=== PATIENT | male | born 1965 | race African-American/Black ===

== ENCOUNTER 2020-05-09 20:02 | Inpatient (IN) | payer OTHER ==
[~2020-05-09] VITALS: Ht 177.8 cm; Wt 68.5 kg
--- NOTE | 2020-05-09 20:52 | Emergency Department Note ---
History of Present Illnes History of Present Illness Chief Complaint: Respiratory History of Present Illness This is a 54 year old male PRESENTS TO THE ER VIA EMS FROM [facility] FOR REPORTED OF POSSIBLE ASPIRATION OF VOMIT; PER [facility], PT HAS BEEN VOMITING SINCE YESTERDAY; EMS REPORTS [facility] REPORTED PT HAD BP OF 80/40'S, EMS REPORTS NORMAL BLOOD PRESSURE WHEN THEY CHECKED IT . Historian: Travel Registered Nurse Oncology/EMS Arrival Mode: [facility] EMS History limited by: condition of the patient (PT WITH H/PO CVA IS IN VEGATATIVE STATE, NON VERBAL) Location: NONE Quality: REPORTED LOW OXYGEN SATURATION Duration (how long): hour(s) (3) Timing of current episode: unable to specify Progression: unable to specify Chronicity: new Past Medical/Family History Physician Review I have reviewed the patient's past medical and family history. Any updates have been documented here. Past Medical History Recent Fever: No Clinical Suspicion of Infectio: No New/Unexplained Change in Ment: No Past Medical History: Hypertension, Seizure Disorder, GERD Other Medical History: ACUTE ON CHRONIC RESP FAILURE CEREBRAL INFARCTION GI HEMORRAGE MODERATE PROTEIN-CALORIE MALNUTRITION DYSPHAGIA EPILEPSY MRSA Other Surgery: TRACHEOSTOMY PEG TUBE Social History Unable to obtain PSH: Unable to obtain due to, other (PT WITH H/O CVA, IN VEGETATIVE STATE, NON VERBAL) Review of Systems ROS Narrative Unable to obtain ROS: Unable to obtain due to, other (PT WITH H/O CVA, IN VEGETATIVE STATE, NONVERBAL) Physical Exam Related Data Allergies: Coded Allergies: No Known Allergies (Unverified , 05/09/20) Triage Vital Signs Vital Signs Date Time Temp Pulse Resp B/P (MAP) Pulse Ox O2 Delivery O2 Flow Rate FiO2 05/09/20 20:02 20 22 109/90 99 Mechanical Ventilator Vital signs reviewed: Yes Physical Exam CONSTITUTIONAL Constitutional: Present other (PT CONTRACTED, THIN) HENT HENT: Present normocephalic, Present atraumatic, Present oropharynx clear/moist, Present nose normal HENT L/R: Present left TM normal, Present left ext ear normal, Present right ext ear normal EYES Eyes: Reports PERRL, Reports conjunctivae normal NECK Neck: Present other (TRACH PRESENT,NO SECRETIONS NOTED AT THIS TIME) PULMONARY Pulmonary: Present other (DECREASED BREATH SOUNDS BASE BILATERAL) CARDIOVASCULAR GASTROINTESTINAL Abdominal: Present soft, Present bowel sounds normal, Present other (PEG TUBE PRESENT); Absent distension GENITOURINARY Genitourinary: Present exam deferred SKIN Skin: Present warm, Present dry MUSCULOSKELETAL Musculoskeletal: Present other (PT CONTRACTED) NEUROLOGICAL Neurological: Present other (UNABLE TO EVALUATE, PT CONTRACTED, IN VEGETATIVE STATE, NON VERBAL) PSYCHOLOGICAL Psychological: Present other (UNABLE TO EVALUATE, PT IN VEGETATIVE STATE, NON VERBAL) Results Laboratory Lab results reviewed: Yes Imaging Imaging results reviewed: Yes Impressions Procedure: [id number] DX/CHEST SINGLE (PORTABLE) Exam Date: 05/09/20 Exam Time: 2039 REPORT STATUS: Signed EXAMINATION: CHEST SINGLE (PORTABLE) INDICATION: ^Y ^trach vent dependent, low oxygen saturation ^[id number] ^2039 ^Y COMPARISON: None FINDINGS: AP view TUBES and LINES: Tracheostomy tube in place with tip projecting just above the clavicles. LUNGS: Lungs are well inflated. Bilateral airspace opacities, most notable in left mid to lower lung field. Again seen right midlung nodular density, measuring approximately 1.2 cm. PLEURA: Bilateral small pleural effusions, left greater than right. HEART AND MEDIASTINUM: The cardiomediastinal silhouette is unremarkable. BONES AND SOFT TISSUES: No acute osseous lesion. Soft tissues are unremarkable. UPPER ABDOMEN: No free air under the diaphragm. IMPRESSION: Bilateral airspace opacities, representing edema and/or pneumonia, left greater right. Small bilateral pleural effusions, left greater than right. Approximately 1.2 cm right midlung nodular density. Signed by: Dr. 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: Interpreted by ED physician Date: May 09, 2020 Time: 20:17 Rhythm: sinus rhythm Rate: normal BPM: 86 QRS axis: normal ST segments normal: Yes T waves normal: Yes Clinical Impression: abnormal ECG Additional Comments ARTIFACT PRESENT THROUGHOUT EKG Critical Care Time Total Critical Care Time (min): 31 Critcal care necessary due to: sepsis Critcal care time spent by me: discussion w consultants, interpret cardiac output measures, evaluation patient response to tx, examination of patient, order/perform tx or interventions, order/review laboratory studies, order/review radiographic studies, pulse oximetry, re-evaluation of patient condition Assessment & Plan Medical Decision Making MDM PT FROM [facility] WITH TRACH AND IS VENT DEPENDENT WITH POSSIBLE ASPIRATION AFTER VOMITING TODAY CBC, CMP, EKG, CXR ORDERED TO EVAL FOR PNEUMONIA, LEUKOCYTOSIS, ELECTROLYTE ABNORMALITY 2114 pt found to be hypothermic tempt of 89.0, warming blanket placed, pt also with wbc of 12.4 and lower lobe opacities on cxr. lactic acid ordered rocephin 1 gram iv ordered zithromax 500 mg iv ordered ns 1 liter iv ordered 2144 PT WITH BLOOD SUGAR 51, 1 AMP D50 ORDERED, D5 1/2 NS ORDERED AT 100 CC PER HOUR IV INITIAL LACTIC ACID 2.[address] STONER AND HE REQUESTED DR DAMON FOR PULMONARY, PT WILL BE ADMITTED TO ICU DUE TO VENT DEPENDENCY, HYPOTHERMIA, AND HYPOGLYCEMIA DR DAMON REQUESTS A PICC LINE BE ORDERED BECAUSE PT HAS DIFFICULT VASCULAR ACCESS AND WILL NEED IV ANTIBIOTICS FOR SEVERAL DAYS REPEAT LACTIC ACID 3.4, PT STILL RECEIVING IV FLUIDS, LACTIC ACID ORDERED AGAIN AT 041, EXTERMINATOR HELPER TO FOLLOW UP Assessment & Plan Final Impression: (1) Severe sepsis (2) Hypothermia (3) Hypoglycemia (4) Aspiration pneumonia (5) Ventilator dependent Depart Disposition: ADMITTED Last Vital Signs Date Time Temp Pulse Resp B/P (MAP) Pulse Ox O2 Delivery O2 Flow Rate FiO2 05/09/20 20:02 20 22 109/90 99 Mechanical Ventilator KEVAN ALCANTAR MD May 09, 2020 20:52
[2020-05-09 20:55] LABS: BASOPHILS # (AUTO) 0.1 (0.0-0.1); BASOPHILS % 0.5 % (0.0-1.0); EOSINOPHILS % 0.3 % (0.0-6.0); HEMATOCRIT 26.3 % (38.2-49.6); LYMPHOCYTES % 8.4 % (18.0-39.1); MEAN CORPUSCULAR HEMOGLOBIN 23.4 pg (28-32); MEAN CORPUSCULAR HGB CONC 30.4 g/dL (31-35); MEAN CORPUSCULAR VOLUME 76.9 fL (81-99); MONOCYTES # (AUTO) 0.2 (0.2-0.8); MONOCYTES % 1.5 % (4.4-11.3); NEUTROPHILS % 88.3 % (38.7-80.0); PLATELET COUNT 80 x10e3/uL (140-360); RED BLOOD COUNT 3.42 x10e6/uL (4.3-5.7); RED CELL DISTRIBUTION WIDTH 27.2 % (11.7-14.4)
--- NOTE | 2020-05-09 21:03 | Diagnostic Imaging Report ---
EXAMINATION: CHEST SINGLE (PORTABLE) INDICATION: ^Y ^trach vent dependent, low oxygen saturation ^[id number] ^2039 ^Y COMPARISON: None FINDINGS: AP view TUBES and LINES: Tracheostomy tube in place with tip projecting just above the clavicles. LUNGS: Lungs are well inflated. Bilateral airspace opacities, most notable in left mid to lower lung field. Again seen right midlung nodular density, measuring approximately 1.2 cm. PLEURA: Bilateral small pleural effusions, left greater than right. HEART AND MEDIASTINUM: The cardiomediastinal silhouette is unremarkable. BONES AND SOFT TISSUES: No acute osseous lesion. Soft tissues are unremarkable. UPPER ABDOMEN: No free air under the diaphragm. IMPRESSION: Bilateral airspace opacities, representing edema and/or pneumonia, left greater right. Small bilateral pleural effusions, left greater than right. Approximately 1.2 cm right midlung nodular density. Signed by: Dr. Jeffery Lozoya MD on 05/09/2020 9:00 PM
[2020-05-09 21:17] LABS: ALANINE AMINOTRANSFERASE 22 IU/L (0-55); ALBUMIN 1.8 g/dL (3.5-5.0); ALBUMIN/GLOBULIN RATIO 0.4 (0.8-2.0); ALKALINE PHOSPHATASE 95 IU/L (40-150); ANION GAP 13.4 mmol/L (8-16); BLOOD UREA NITROGEN 37 mg/dL (7-26); BUN/CREATININE RATIO 36 (6-25); CALCIUM 9.1 mg/dL (8.4-10.2); CARBON DIOXIDE 25 mmol/L (22-29); CHLORIDE 103 mmol/L (98-107); CREATINE KINASE 42 IU/L (30-200); CREATININE, SERUM 1.02 mg/dL (0.72-1.25); EST GLOMERULAR FILTRATION RATE > 60 ML/MIN (60-); POTASSIUM 4.4 mmol/L (3.5-5.1); SODIUM 137 mmol/L (136-145)
[2020-05-09 21:24] LABS: BAND NEUTROPHILS % (MANUAL) 20 %; EOSINOPHILS % (MANUAL) 1 % (0-7); LYMPHOCYTES % (MANUAL) 10 % (19-48); MONOCYTES % (MANUAL) 1 % (3.4-9.0); NEUTROPHILS % (MANUAL) 68 % (40-74)
[2020-05-09 21:25] LABS: ANISOCYTOSIS SLIGHT; HYPOCHROMASIA SLIGHT; MICROCYTOSIS SLIGHT; PLATELET ESTIMATE SLIGHTLY DECREASED; PLATELET MORPHOLOGY COMMENT NORMAL; RBC MORPHOLOGY COMMENT NORMAL
[2020-05-09] MEDS ORDERED: AZITHROMYCIN 500MG/NS 250 ML 250 ML IV ONE (21:30)
[2020-05-09] MEDS ORDERED: SODIUM CHLORIDE 0.9% 1000ML 1,000 ML IV ONE ×2 (21:30→22:15)
[2020-05-09] MEDS ORDERED: CEFTRIAXONE SOD 1 GM/NS 50 ML 50 ML IV ONE (21:30)
[2020-05-09 21:42] LABS: GLUCOSE 51 mg/dL (74-118)
[2020-05-09] MEDS ORDERED: DEXTROSE 50% SYRINGE 50 ML IV STA (21:42)
[2020-05-09] MEDS ORDERED: DEXTROSE 5%/0.45% SOD CHL 1,000 ML IV ONE (21:45)
[2020-05-09] MEDS ORDERED: DEXTROSE 50% SYRINGE 50 ML IV ONE (21:50)
[2020-05-09 21:51] LABS: BILIRUBIN,URINE NEGATIVE (NEGATIVE); CLARITY,URINE HAZY (CLEAR); COLOR,URINE YELLOW (YELLOW); KETONES,URINE NEGATIVE (NEGATIVE); LEUKOCYTE ESTERASE ,URINE NEGATIVE (NEGATIVE); NITRITE,URINE NEGATIVE (NEGATIVE); PROTEIN,URINE DIPSTICK 1+ (NEGATIVE); URINE UROBILINOGEN 0.2 mg/dL (0.2 - 1)
[2020-05-09 21:53] LABS: AMORPHOUS SEDIMENT,URINE FEW (FEW); BACTERIA,URINE FEW /HPF; EPITHELIAL CELLS,URINE FEW /LPF; RBC,URINE 0-5 /HPF (0-5); WBC,URINE (MAN) 0-5 /HPF (0-5)
[2020-05-09] MEDS ORDERED: PIPER-TAZ 3.375 GM 50 ML IV ONE (22:00)
--- NOTE | 2020-05-09 22:14 | NUR ---
ER MD AND PRIMARY RN NOTIFIED AND AWARE OF CRITICAL LAB VALUE, LACTIC ACID 2.6.
[2020-05-09] MEDS: AZITHROMYCIN 500MG/SOD CHL 0.9% 250ML BAG IV SCH (23:30)
[2020-05-09] MEDS ORDERED: ACETAMINOPHEN 325 MG SUPP PR PRN (23:30)
[2020-05-10] VITALS (44 sets, daily range): BP systolic 63–112; BP diastolic 32–76
[2020-05-10] MEDS: AZITHROMYCIN 500MG/SOD CHL 0.9% 250ML BAG IV SCH (00:25)
--- NOTE | 2020-05-10 01:50 | Diagnostic Imaging Report ---
EXAMINATION: CHEST XRAY LINE PLACEMENT INDICATION: ^20200510 ^0125 ^PICC LINE COMPARISON: 05/09/2020 IMPRESSION Stable tracheostomy tube. Interval right PICC placement with tip projecting over inferior SVC. No pneumothorax. Redemonstration of bilateral airspace opacities and small effusions. Signed by: Dr. Jeffery Lozoya MD on 05/10/2020 1:47 AM
[2020-05-10] MEDS ORDERED: NOREPINEPHRINE 8 MG/D5W 250 ML 250 ML ONE ×2 (02:40→10:28)
[2020-05-10] MEDS ORDERED: NOREPINEPHRINE INJ 4MG/4ML 8 MG in DEXTROSE 5% 250ML 250 ML IV PRN (02:45)
[2020-05-10 05:31] LABS: BASOPHILS # (AUTO) 0.1 (0.0-0.1); BASOPHILS % 0.7 % (0.0-1.0); EOSINOPHILS % 0.2 % (0.0-6.0); HEMATOCRIT 24.3 % (38.2-49.6); HEMOGLOBIN 7.4 g/dL (14.0-18.0); LYMPHOCYTES # (AUTO) 0.7 (1.0-3.2); LYMPHOCYTES % 4.9 % (18.0-39.1); MEAN CORPUSCULAR HEMOGLOBIN 23.2 pg (28-32); MEAN CORPUSCULAR HGB CONC 30.5 g/dL (31-35); MEAN CORPUSCULAR VOLUME 76.2 fL (81-99); MONOCYTES # (AUTO) 0.2 (0.2-0.8); MONOCYTES % 1.6 % (4.4-11.3); NEUTROPHILS # (AUTO) 12.3 (2.1-6.9); PLATELET COUNT 73 x10e3/uL (140-360); RED BLOOD COUNT 3.19 x10e6/uL (4.3-5.7); RED CELL DISTRIBUTION WIDTH 27.5 % (11.7-14.4)
[2020-05-10 05:51] LABS: ALANINE AMINOTRANSFERASE 19 IU/L (0-55); ALBUMIN 1.7 g/dL (3.5-5.0); ALBUMIN/GLOBULIN RATIO 0.4 (0.8-2.0); ALKALINE PHOSPHATASE 89 IU/L (40-150); ANION GAP 10.1 mmol/L (8-16); BLOOD UREA NITROGEN 37 mg/dL (7-26); BUN/CREATININE RATIO 35 (6-25); CALCIUM 8.2 mg/dL (8.4-10.2); CARBON DIOXIDE 22 mmol/L (22-29); CHLORIDE 106 mmol/L (98-107); CREATININE, SERUM 1.05 mg/dL (0.72-1.25); EST GLOMERULAR FILTRATION RATE > 60 ML/MIN (60-); POTASSIUM 4.1 mmol/L (3.5-5.1); SODIUM 134 mmol/L (136-145)
[2020-05-10 05:52] LABS: CREATINE KINASE MB 3.7 ng/mL (0-5.0)
[2020-05-10 05:55] LABS: GLUCOSE 54 mg/dL (74-118)
[2020-05-10] MEDS ORDERED: DEXTROSE 50% SYRINGE 50 ML IV PRN (06:00)
[2020-05-10] MEDS: PIPER-TAZ 3.375 GM 50 ML IV SCH ×3 (06:02→23:00)
[2020-05-10 08:26] LABS: CREATINE KINASE MB 3.2 ng/mL (0-5.0)
[2020-05-10] MEDS ORDERED: ACETAMINOPHEN325 M1 PO (08:55)
[2020-05-10] MEDS ORDERED: AMIODARONE HCL200 MG PEG (08:57)
[2020-05-10] MEDS ORDERED: CLONIDINE HCL0.1 MG PO (09:00)
[2020-05-10] MEDS ORDERED: FERROUS SU220 MG/52 PEG (09:02)
[2020-05-10] MEDS ORDERED: KEPPRA500 MG PO (09:05)
[2020-05-10] MEDS ORDERED: METOPROLOL TAR100 MG PO (09:06)
[2020-05-10] MEDS ORDERED: PEPCID20 MG PO (09:07)
[2020-05-10] MEDS ORDERED: THIAMINE H100 MG/1 M IV (09:09)
[2020-05-10] MEDS ORDERED: VALPROIC A250 MG/5 M PO (09:10)
[2020-05-10] MEDS ORDERED: XARELTO10 MG PEG (09:12)
[2020-05-10] MEDS ORDERED: ZOFRAN8 MG PEG (09:13)
[2020-05-10 10:23] LABS: ANISOCYTOSIS MARKED; BAND NEUTROPHILS % (MANUAL) 6 %; EOSINOPHILS % (MANUAL) 1 % (0-7); LYMPHOCYTES % (MANUAL) 7 % (19-48); MONOCYTES % (MANUAL) 1 % (3.4-9.0); NEUTROPHILS % (MANUAL) 85 % (40-74); RBC MORPHOLOGY COMMENT ABNORMAL; TARGET CELLS MODERATE
[2020-05-10 10:24] LABS: SCHISTOCYTES RARE
[2020-05-10 10:25] LABS: MICROCYTOSIS SLIGHT
[2020-05-10 10:28] LABS: PLATELET ESTIMATE MODERATELY DECREASED; PLATELET MORPHOLOGY COMMENT NORMAL
[2020-05-10] MEDS ORDERED: SODIUM CHLORIDE 0.9% 250ML 250 ML IV ONE (11:30)
[2020-05-10] MEDS: VASOPRESSIN 60 UNIT in DEXTROSE 5% 50ML 57 ML IV SCH (11:30)
[2020-05-10] MEDS ORDERED: SODIUM CHLORIDE 0.9% 1000ML 1,000 ML IV SCH (11:30)
[2020-05-10] MEDS: NOREPINEPHRINE 8 MG/D5W 250 ML 250 ML IV PRN (12:00)
--- NOTE | 2020-05-10 15:18 | Consultation ---
DATE OF CONSULTATION: Pulmonary Critical Care Consultation REASON FOR CONSULT: ICU management. HISTORY OF PRESENT ILLNESS: Mr. Chavez is a 54-year-old male, well known to me from previous admission and [facility]. The patient is in persistent vegetative state with chronic respiratory failure. He is vent-dependent, has multiple decubitus ulcer, anemia, has been at [facility] in the past and then remained in ICU. Currently, came in with worsening shortness of breath and the patient's chest x-ray is showing evidence of bilateral airspace opacities and looks like that he has developed pneumonia. The patient is tachypneic on mechanical ventilator. He is unable to give me any history because of his mental status. REVIEW OF SYSTEMS: Unable to elicit because of his mental status. PAST MEDICAL HISTORY: Persistent vegetative state, hypertension, bipolar disorder, tracheostomy, and gastrostomy tube. FAMILY AND SOCIAL HISTORY: He is a [place] resident. PHYSICAL EXAMINATION: VITAL SIGNS: Temperature 97, pulse of 100, blood pressure 93/73, and afebrile. HEENT: Tracheostomy. CHEST: Clear to auscultation bilaterally. No wheezing. ABDOMEN: Soft. PEG tube contracted. LABORATORY DATA: Reviewed. Hemoglobin is down to 7.4, white count of 13,000, and platelets 73. Chemistry; sodium 134, potassium 4.1, BUN 37, and creatinine 1.05. Lactic acid is 2.8, was 2.6 and now 2.0 this morning. Chest x-ray reviewed. ASSESSMENT/PLAN: Mr. Chavez is a 54-year-old male, who is bedbound, vent-dependent, has tracheostomy and PEG tube, came in with worsening shortness of breath, leukocytosis, chest x-ray suggestive of pneumonia. Current problem: Healthcare-associated pneumonia, septic shock due to pneumonia, bedbound status, tracheostomy status, PEG tube status, contractures. The patient has encephalopathy as well. PLAN: Continue the patient on IV Zosyn and azithromycin. Add vasopressin to Levophed. We will start the patient on sedation with fentanyl. Resume the home medications. Hold on Xarelto. Recommend GI consult for anemia. Overall prognosis is poor. Critical care time spent, 50 minutes. MD ELVER Charles/MODL /[id number]
[2020-05-10] MEDS: FENTANYL 2000MCG/NS 250 250 ML IV PRN (15:54)
--- NOTE | 2020-05-10 15:57 | NUR ---
WOUND CARE CONSULT 54 YO MALE HX OF ASPIRATION PNEU FRANCHESCA 8 0N STRICT PUP STATUS AND INTERVENTIONS LABS: WBC- 13.47 HGB- 7.4 GLUCOSE-54 SKIN ASSESSMENT COMPLETE PATIENT PRESENTS WITH MULTIPLE PRESSURE INJURIES RELATED TO CONTRACTURES AND DEBILITATION AND NUTRITIONAL STATUS WOUND ASSESSMENTS AND MEASUREMENTS LISTED ON WOUND ASSESSMENT FOR ATTACHED CYNDI PEG SITE ALSO HAS FULL THICKNESS WOUND DOCUMENTED WELL RECOMMENDATIONS: NURSING TO CONTINUE TO MONITOR PATIENT AND KEEP SKIN CLEAN AND FREE FROM LOOSE STOOL OR IRRITATING MOISTURE AND CONTINUE TO FOLLOW STRICT PUP INTERVENTIONS MAINTAIN SOFT OFFLOADING BOOTS TO BILATERAL LOWER EXTREMITIES WITH PILLOW SUSPENSION AND ALTERNATING PRESSURE SURFACE COORDINATED WITH FREQUENT Q 2 HR TURNS NURSING TO CONTINUE TO ASSIST PATIENT WITH NUTRITIONAL NEEDS TO SUPPORT HEALING NURSING TO CLEAN MULTIPLE PRESSURE ULCERATIONS TO RIGHT FOOT ,HIP ,SACRUM ,BUTTOCKS,RT ELBOW ,RT SHOULDER, WITH NORMAL SALINE DAILY AND APPLY MAXSORB AG TO WOUND BASE AND COVER WITH ALLEVYN FOAM DRESSING NURSING TO CLEAN ULCERATION CYNDI PEG TUBE WITH NORMAL SALINE DAILY AND APPLY MAXSORB AG TO WOUND BASE AND COVER WITH ALLEVYN FOAM DRESSING CUT TO FIT AROUND PEG TUBE Addendum: 05/10/20 at 1610 by Eliseo Samson RN Amended: Links added.
[2020-05-10] MEDS ORDERED: SODIUM CHLORIDE 0.9% 250ML 250 ML ONE ×2 (17:36→20:52)
[2020-05-10] MEDS: LEVETIRACETAM 500 MG TAB PO SCH (18:46)
[2020-05-10] MEDS: VALPROATE 250MG/5ML ORAL LIQ 5ml PEG SCH (21:10)
[2020-05-10] MEDS ORDERED: VALPROATE SODIUM PO SCH (22:00)
[2020-05-11] VITALS (58 sets, daily range): BP systolic 75–115; BP diastolic 44–99
[2020-05-11] MEDS: NOREPINEPHRINE 8 MG/D5W 250 ML 250 ML IV PRN ×2 (02:02→17:46)
[2020-05-11 06:11] LABS: BASOPHILS # (AUTO) 0.1 (0.0-0.1); BASOPHILS % 0.7 % (0.0-1.0); EOSINOPHILS # (AUTO) 0.1 (0.0-0.4); EOSINOPHILS % 0.6 % (0.0-6.0); HEMATOCRIT 26.1 % (38.2-49.6); HEMOGLOBIN 8.1 g/dL (14.0-18.0); LYMPHOCYTES # (AUTO) 1.2 (1.0-3.2); LYMPHOCYTES % 9.5 % (18.0-39.1); MEAN CORPUSCULAR HEMOGLOBIN 24.3 pg (28-32); MEAN CORPUSCULAR VOLUME 78.1 fL (81-99); MONOCYTES # (AUTO) 0.3 (0.2-0.8); MONOCYTES % 2.7 % (4.4-11.3); NEUTROPHILS # (AUTO) 10.5 (2.1-6.9); RED BLOOD COUNT 3.34 x10e6/uL (4.3-5.7); RED CELL DISTRIBUTION WIDTH 26.9 % (11.7-14.4)
[2020-05-11] MEDS: PIPER-TAZ 3.375 GM 50 ML IV SCH (06:13)
[2020-05-11] MEDS: VALPROATE 250MG/5ML ORAL LIQ 5ml PEG SCH ×3 (06:14→22:11)
[2020-05-11 06:40] LABS: ANION GAP 10.4 mmol/L (8-16); BLOOD UREA NITROGEN 34 mg/dL (7-26); BUN/CREATININE RATIO 31 (6-25); CALCIUM 8.5 mg/dL (8.4-10.2); CARBON DIOXIDE 23 mmol/L (22-29); CHLORIDE 107 mmol/L (98-107); EST GLOMERULAR FILTRATION RATE > 60 ML/MIN (60-); POTASSIUM 4.4 mmol/L (3.5-5.1); SODIUM 136 mmol/L (136-145)
[2020-05-11 07:06] LABS: GLUCOSE 50 mg/dL (74-118)
[2020-05-11] MEDS: FENTANYL 2000MCG/NS 250 250 ML IV PRN (07:14)
[2020-05-11 08:08] LABS: BAND NEUTROPHILS % (MANUAL) 4 %; EOSINOPHILS % (MANUAL) 1 % (0-7); LYMPHOCYTES % (MANUAL) 11 % (19-48); MONOCYTES % (MANUAL) 1 % (3.4-9.0); NEUTROPHILS % (MANUAL) 83 % (40-74)
[2020-05-11 08:09] LABS: TARGET CELLS MODERATE
[2020-05-11 08:10] LABS: PLATELET ESTIMATE MARKEDLY DECREASED; PLATELET MORPHOLOGY COMMENT NORMAL; RBC MORPHOLOGY COMMENT ABNORMAL
[2020-05-11 08:11] LABS: SCHISTOCYTES RARE
[2020-05-11 08:12] LABS: ANISOCYTOSIS MODERATE; HYPOCHROMASIA SLIGHT
[2020-05-11 08:16] LABS: LARGE PLATELETS FEW; PLATELET COUNT 44 x10e3/uL (140-360)
[2020-05-11] MEDS ORDERED: SODIUM CHLORIDE 0.9% 500ML 500 ML IV ONE ×2 (08:30→08:45)
[2020-05-11] MEDS: THIAMINE HCL INJ 100 MG/ML 2ML VIAL IV SCH (08:45)
[2020-05-11] MEDS: LEVETIRACETAM 500 MG TAB PO SCH ×2 (08:45→15:37)
[2020-05-11] MEDS: FERROUS SULFATE 300 MG/5 ML LIQD PEG SCH (08:45)
[2020-05-11] MEDS ORDERED: NON-FORMULARY MEDICATION (Ferrous Sulfate 7.5 ML) PEG SCH (09:00)
[2020-05-11] MEDS: CEFEPIME 1GM/NS 0.9% 50 ML 50 ML IV SCH ×2 (09:32→20:38)
[2020-05-11] MEDS: VASOPRESSIN 60 UNIT in DEXTROSE 5% 50ML 57 ML IV SCH (11:30)
--- NOTE | 2020-05-11 15:35 | Consultation ---
DATE OF CONSULTATION: Wound Consultation Thank you, Dr. Sanches, for asking us to see this patient. 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 The patient has ulcers from pressure at multiple sites. Wound consult was called. The patient cannot communicate, on mechanical ventilation, contracted. PAST MEDICAL HISTORY: CVA, persistent vegetative status, vent independent, bipolar, hypertension, multiple wounds, and contracted status. PAST SURGICAL HISTORY: Tracheostomy, PEG tube. PERSONAL HISTORY: Unknown. PAST MEDICAL HISTORY: Includes hypertension, pulmonary embolism, and cerebral infarction. PHYSICAL EXAMINATION: GENERAL: Blood pressure 87/52, pulse of 106, and temperature 96.9. Height 5 feet 10 inches, weight 160 pounds. HEENT: Normal. NECK: No JVD. Tracheostomy in place. LUNGS: Diminished air entry to the bases. ABDOMEN: Soft. PEG tube in place. EXTREMITIES: Lower extremities contracted. SKIN: Left lateral malleolus, the patient has a wound stage IV, 80% pink, 30% slough, bone palpable, measures 2.5 x 2.5 x 0.3 cm. Right lateral foot necrotic, unstageable pressure ulcer. Left lateral malleolus, the patient has stage IV pressure ulcer, 50% slough, pink, bone palpable, not exposed, measures 2.2 x 0.3 cm. Left lateral metatarsal has dark necrotic area with DTI. Both groins, the patient has some maceration. Left groin has stage IV ulcer, cause of pressure unspecified, probably catheter, probably from contractures. Right inner thigh multiple excoriations causing stage III ulcers. Penile edema noted. G-tube site is loose with drainage around the G-tube with maceration noted. Sacral area, stage IV pressure ulcer measures approximately 6 x 0.5 cm, 30% necrotic, 20% facial slough, undermining for 0.5 cm by 12 o'clock position, bone palpable, not exposed. The right upper back on the acromion and scapular area, there are three wounds. The upper wound has necrotic slough and exposed subcutaneous tissue and fascia. Two wounds on the lower acromion on the scapula, both are stage IV with 50% necrotic and 50% slough. Left hip, the patient has a wound measuring 4.5 x 5 cm, 80% pink within small tunnel the patient has a wound measuring 2.5 x 2 cm x 0.3 cm, stage IV. ASSESSMENT: Multiple pressure ulcers, contractures, non-healable wounds, currently does not need debridement. PLAN: We will continue the wound care. We will clean wound with normal saline and packed with Dakin's moistened 4 x 4, Maxorb. Thank you for consultation, we will follow with you. Nuris Diana MD TG/MODL /[id number]
[2020-05-11] MEDS ORDERED: ALBUMIN 25% 25GM 100ML 0.25 GM/ML BTL IV NR (16:45)
[2020-05-11] MEDS: AZITHROMYCIN 500MG/SOD CHL 0.9% 250ML BAG IV SCH (23:01)
[2020-05-12] VITALS (45 sets, daily range): BP systolic 86–107; BP diastolic 50–67
[2020-05-12] MEDS: NOREPINEPHRINE 8 MG/D5W 250 ML 250 ML IV PRN ×2 (00:53→09:59)
[2020-05-12] MEDS: FENTANYL 2000MCG/NS 250 250 ML IV PRN ×2 (03:40→20:04)
[2020-05-12 05:07] LABS: BASOPHILS % 0.1 % (0.0-1.0); EOSINOPHILS # (AUTO) 0.1 (0.0-0.4); HEMATOCRIT 23.1 % (38.2-49.6); HEMOGLOBIN 7.3 g/dL (14.0-18.0); LYMPHOCYTES # (AUTO) 1.1 (1.0-3.2); LYMPHOCYTES % 12.3 % (18.0-39.1); MEAN CORPUSCULAR HEMOGLOBIN 25.5 pg (28-32); MEAN CORPUSCULAR HGB CONC 31.6 g/dL (31-35); MEAN CORPUSCULAR VOLUME 80.8 fL (81-99); MONOCYTES # (AUTO) 0.3 (0.2-0.8); MONOCYTES % 3.1 % (4.4-11.3); NEUTROPHILS # (AUTO) 7.5 (2.1-6.9); NEUTROPHILS % 82.2 % (38.7-80.0); RED BLOOD COUNT 2.86 x10e6/uL (4.3-5.7); RED CELL DISTRIBUTION WIDTH 27.2 % (11.7-14.4)
[2020-05-12 05:12] LABS: PLATELET COUNT 26 x10e3/uL (140-360)
[2020-05-12 05:22] LABS: ANION GAP 11.2 mmol/L (8-16); BLOOD UREA NITROGEN 26 mg/dL (7-26); BUN/CREATININE RATIO 23 (6-25); CALCIUM 9.2 mg/dL (8.4-10.2); CARBON DIOXIDE 24 mmol/L (22-29); CHLORIDE 111 mmol/L (98-107); CREATININE, SERUM 1.12 mg/dL (0.72-1.25); EST GLOMERULAR FILTRATION RATE > 60 ML/MIN (60-); GLUCOSE 61 mg/dL (74-118); POTASSIUM 4.2 mmol/L (3.5-5.1); SODIUM 142 mmol/L (136-145)
[2020-05-12] MEDS: VALPROATE 250MG/5ML ORAL LIQ 5ml PEG SCH (05:54)
--- NOTE | 2020-05-12 06:20 | NUR ---
Left message with answering service for Dr. Malik regarding critical lab value. Awaiting return call.
[2020-05-12 06:29] LABS: IRON 60 ug/dL (65-175); TRANSFERRIN < 70 mg/dL (174-364)
[2020-05-12 07:12] LABS: FERRITIN 3370.37 ng/mL (21.81-274.66)
--- NOTE | 2020-05-12 07:54 | Diagnostic Imaging Report ---
EXAMINATION: CHEST SINGLE (PORTABLE) INDICATION: Pneumonia COMPARISON: Chest x-ray 05/10/2020 FINDINGS: TUBES and LINES: Tracheostomy tube tip projects within the upper intrathoracic trachea. Right upper extremity PICC tip terminates in the superior cavoatrial junction.. LUNGS: Hyperexpanded lungs. Extensive airspace haziness. PLEURA: No pleural effusion or pneumothorax. HEART AND MEDIASTINUM: The cardiomediastinal silhouette is mildly enlarged.. Coronary stents. BONES AND SOFT TISSUES: No acute osseous lesion. Soft tissues are unremarkable. UPPER ABDOMEN: No free air under the diaphragm. IMPRESSION: Stable support apparatus. Extensive airspace disease. Signed by: Reg Arreola DO on 05/12/2020 7:50 AM
[2020-05-12] MEDS: SODIUM HYPOCHLORITE 0.25% 480 ML SOLN IR SCH (08:01)
[2020-05-12] MEDS: LEVETIRACETAM 500 MG TAB PO SCH ×2 (08:01→17:22)
[2020-05-12] MEDS: FERROUS SULFATE 300 MG/5 ML LIQD PEG SCH (08:01)
[2020-05-12] MEDS: THIAMINE HCL INJ 100 MG/ML 2ML VIAL IV SCH (08:01)
[2020-05-12] MEDS: CEFEPIME 1GM/NS 0.9% 50 ML 50 ML IV SCH (08:01)
[2020-05-12 10:50] LABS: ANISOCYTOSIS MODERATE; BAND NEUTROPHILS % (MANUAL) 1 %; EOSINOPHILS % (MANUAL) 1 % (0-7); LYMPHOCYTES % (MANUAL) 16 % (19-48); MONOCYTES % (MANUAL) 1 % (3.4-9.0); NEUTROPHILS % (MANUAL) 81 % (40-74); PLATELET ESTIMATE MARKEDLY DECREASED; RBC MORPHOLOGY COMMENT ABNORMAL; TARGET CELLS MODERATE
[2020-05-12 10:51] LABS: HYPOCHROMASIA SLIGHT
[2020-05-12] MEDS ORDERED: SODIUM CHLORIDE 0.9% 250ML 250 ML ONE (11:16)
[2020-05-12 11:19] LABS: ABG HCO3 25 mmol/L (22-26); ABG PCO2 55 mmHg (35-45); ABG PH 7.26 (7.35-7.45); ABG PO2 72 mmHg (80-105); ABG TCO2 27
[2020-05-12] MEDS: VASOPRESSIN 60 UNIT in DEXTROSE 5% 50ML 57 ML IV SCH (11:30)
--- NOTE | 2020-05-12 12:48 | NUR ---
Nutrition Intervention Note RD Recommendation(s) for Physician: - If light of pressor requirement and wounds, recommend TF change to Vital AF with goal rate of 70 ml/hr (to provide 2016 kcal and 126 gm protein) to better meet needs. - Water flushes and fluid management per MD. - Please give Ismael 1 packet BID per PEG to promote wound healing. - Recommend Vitamin C 500 mg BID and Zinc Sulfate 220 mg/day to promote wound healing. Pt meets criteria for moderate protein calorie malnutrition Plan of Care: RD following, monitoring for tolerance and adequacy. TF, MVI, and supplement rec's. Nutrition reason for involvement: new TF RD Assessment 05/12: 54 YOM admitted for aspiration pneumonia, seen today per TF on admit. Pt transferred from ER to ICU now. Pt chronic trach and PEG, currently on vent and receiving TF at 40 ml/hr. Pt on high Levophed currently. No prior admits per chart, unable to obtain wt or TF hx currently. Pt with multiple wounds on admit per MD notes. Awaiting wound care consult. TF and supplement rec's provided and placed in chart. Chart reviewed. Will continue to monitor. Principal Problems/Diagnoses: aspiration pneumonia, hypoglycemia PMH: organic brain syndrome, CVA, persistent vegetative state, bipolar, HTN, multiple wounds, contractures GI: LBM 05/12- liquid, +PEG Skin: Per MD note- L ankle stage IV, R foot necrotic, unstagable, L groin stage IV, R inner thigh stage III, PEG site loose + drainage, sacral area stage IV, L hip stage IV, wounds to upper back Labs: 05/12: Na 142, K 4.2, BUN 26, Cr 1.12, Gluc 61 Meds: feosol, thiamine, keppra, abx IVF/Drips: levophed at 15 mcg/min, fentanyl drip Ht: 70 in Wt: 153.19 lb BMI: 22 kg/m2 IBW: 166 lb Malnutrition Evaluation (05/12/20) The patient meets criteria for MODERATE protein-calorie malnutrition. Energy intake: CHRISTIANNE, pt non-verbal and TF dependent Weight loss: CHRISTIANNE, no prior admit wt available Fat loss: moderate, very little skinfold thickness Muscle loss: moderate, temporal wasting, clavicle some protrusion Supporting Evidence: Fluid accumulation: none observed Functional Status: poor functional status at baseline Nutrition Prescription (Diet Order): Osmolite 1.2, advance to goal rate of 60 ml/hr. Currently infusing at 40 ml/hr (1152 kcal and 53 gm protein) Estimated Nutritional Needs: 2297-4979 calories/day (28-32 kcal/kg CBW) 84-139 g protein/day (1.2-2 g pro/kg CBW) Diet Adequacy: Not meeting calorie needs, Not meeting protein needs Diet Tolerance: tolerating TF Diet Education Needs Assessment: Diet education not indicated, patient TF dependent. Nutrition Care Level: high- multiple wounds Nutrition Diagnosis: Increased energy and protein needs related to skin integrity as evidenced by multiple wounds present on admit. Goal: Patient will meet 75-100% of estimated needs by follow up Progress: N/A Interventions: - Composition, Rate, Route, IVF, Prescription medications, Recommended Modifications, Multivitamin/mineral supplement therapy, Collaboration with other providers, Ismael Monitoring/Evaluation: - Total energy intake, Total protein intake, Formula/Solution, Prescription medication Signed: Kate Diez RD, LD, CNSC
[2020-05-12] MEDS: MEROPENEM 500MG/ NS 50ML 50 ML IV SCH ×2 (15:43→22:38)
--- NOTE | 2020-05-12 16:23 | NUR ---
INFECTIOUS DISEASE CONSULT NOTE DR. SUHAS WOODY CC: Bacteremia and PNA, CDIFF HPI: 54-year-old male, well known to me from previous admission and [facility]. The patient is in persistent vegetative state with chronic respiratory failure. He is vent-dependent, has multiple decubitus ulcer, anemia, has been at [facility] in the past and then remained in ICU. Currently, came in with worsening shortness of breath and the patient's chest x-ray is showing evidence of bilateral airspace opacities with pneumonia. The patient is tachypneic on mechanical ventilator. History obtained from the chart PMH: vegetative state, HTN, multiple infections PAST SURGICAL:Trach, PEG SOCIAL: unknown FAMILY: unknown, nursing hoome ROS: unable to obtain due to vegetative state ALL 14 POINT ROS NEG UNLESS OTHERWISE NOTED LABS: reviewed RADIOLOGY: reviewed PHYSICAL EXAM GENERAL: vent dependent, critically ill HEENT: normocephalic, atraumatic CV: s1, s2, no s3, s4 CHEST: diminished, rhonchi ABD: PEG, soft, non-tender EXT: contractures, multiple wounds NEURO: unable to assess IMPRESSION: Bacteremia Chronic wounds Chronic hypoxic respiratory failure with vent dependence and trach HAP CDIFF PLAN: Gram neg rods in the blood Will continue Merrem will continue oral vanc overall prognosis is poor Marianela Marin MSN, [employer], [facility]- Suhas Woody M.D.
[2020-05-12] MEDS ORDERED: SODIUM CHLORIDE 0.9% 250ML 250 ML IV ONE (17:00)
[2020-05-12] MEDS: VANCOMYCIN 250MG/5ML ORAL SOLN PEG SCH (17:22)
[2020-05-13] VITALS (15 sets, daily range): BP systolic 97–141; BP diastolic 51–69
[2020-05-13] MEDS: VANCOMYCIN 250MG/5ML ORAL SOLN PEG SCH ×4 (00:22→17:36)
[2020-05-13] MEDS: MEROPENEM 500MG/ NS 50ML 50 ML IV SCH (05:32)
[2020-05-13 06:12] LABS: BASOPHILS % 0.1 % (0.0-1.0); EOSINOPHILS % 0.4 % (0.0-6.0); HEMATOCRIT 27.9 % (38.2-49.6); HEMOGLOBIN 8.8 g/dL (14.0-18.0); LYMPHOCYTES # (AUTO) 0.7 (1.0-3.2); LYMPHOCYTES % 7.4 % (18.0-39.1); MEAN CORPUSCULAR HEMOGLOBIN 25.9 pg (28-32); MEAN CORPUSCULAR HGB CONC 31.5 g/dL (31-35); MEAN CORPUSCULAR VOLUME 82.1 fL (81-99); MONOCYTES # (AUTO) 0.4 (0.2-0.8); MONOCYTES % 4.3 % (4.4-11.3); NEUTROPHILS # (AUTO) 8.3 (2.1-6.9); NEUTROPHILS % 86.9 % (38.7-80.0); PLATELET COUNT 58 x10e3/uL (140-360)
[2020-05-13 06:24] LABS: RED CELL DISTRIBUTION WIDTH 26.5 % (11.7-14.4)
[2020-05-13 06:25] LABS: INR 1.39; PROTHROMBIN TIME 17.8 seconds (11.9-14.5)
[2020-05-13 06:37] LABS: ALANINE AMINOTRANSFERASE 11 IU/L (0-55); ALBUMIN 1.9 g/dL (3.5-5.0); ALBUMIN/GLOBULIN RATIO 0.5 (0.8-2.0); ALKALINE PHOSPHATASE 76 IU/L (40-150); ANION GAP 10.1 mmol/L (8-16); BLOOD UREA NITROGEN 22 mg/dL (7-26); BUN/CREATININE RATIO 21 (6-25); CALCIUM 9.8 mg/dL (8.4-10.2); CARBON DIOXIDE 25 mmol/L (22-29); CHLORIDE 111 mmol/L (98-107); CREATININE, SERUM 1.03 mg/dL (0.72-1.25); EST GLOMERULAR FILTRATION RATE > 60 ML/MIN (60-); GLUCOSE 96 mg/dL (74-118); POTASSIUM 4.1 mmol/L (3.5-5.1); SODIUM 142 mmol/L (136-145)
--- NOTE | 2020-05-13 08:26 | Diagnostic Imaging Report ---
TECHNIQUE: Frontal view of the chest. INDICATION: ^pneumonia ^20200513 ^0625 COMPARISON: Prior day. DISCUSSION: Limited evaluation due to portable technique. Lines and hardware: Stable tracheostomy tube and right PICC. Heart and mediastinum: Stable. Lungs and pleura: Stable hyperexpanded lungs with multifocal bilateral airspace opacities. Negative for large pneumothorax. Question trace effusions. Soft tissues and bones: No acute abnormality. IMPRESSION: Stable exam demonstrate hyperexpanded lungs in multifocal bilateral airspace opacities. Stable support structures. Signed by: John Calabrese MD on 05/13/2020 8:23 AM
[2020-05-13] MEDS ORDERED: AZTREONAM 1 GM/NS 50 ML 50 ML IV SCH (08:45)
[2020-05-13] MEDS: LEVETIRACETAM 500 MG TAB PO SCH ×2 (09:00→17:35)
[2020-05-13] MEDS: SODIUM HYPOCHLORITE 0.25% 480 ML SOLN IR SCH (09:00)
[2020-05-13] MEDS: FERROUS SULFATE 300 MG/5 ML LIQD PEG SCH (09:00)
[2020-05-13] MEDS: THIAMINE HCL INJ 100 MG/ML 2ML VIAL IV SCH (09:00)
[2020-05-13 11:13] LABS: EOSINOPHILS % (MANUAL) 1 % (0-7); LYMPHOCYTES % (MANUAL) 8 % (19-48); MONOCYTES % (MANUAL) 2 % (3.4-9.0); NEUTROPHILS % (MANUAL) 89 % (40-74)
[2020-05-13 11:14] LABS: ANISOCYTOSIS MODERATE; HYPOCHROMASIA SLIGHT; RBC MORPHOLOGY COMMENT ABNORMAL; TARGET CELLS MODERATE
[2020-05-13 11:15] LABS: HELMET CELLS SLIGHT; TEAR DROP CELLS FEW
[2020-05-13 11:16] LABS: PLATELET ESTIMATE MODERATELY DECREASED; PLATELET MORPHOLOGY COMMENT NORMAL
[2020-05-13] MEDS: VASOPRESSIN 60 UNIT in DEXTROSE 5% 50ML 57 ML IV SCH (11:30)
[2020-05-13] MEDS ORDERED: CEFEPIME 1GM/NS 0.9% 50 ML 50 ML IV SCH (12:00)
--- NOTE | 2020-05-13 13:17 | Consultation ---
DATE OF CONSULTATION: HISTORY OF PRESENT ILLNESS: Mr. Chavez is a 54-year-old male, comes in from [facility], multiple admissions, aspiration pneumonia, multiple decubitus ulcer. He is vent-dependent. He was in [facility] before. The patient has persistent vegetative state, hypertension, bipolar disorder, status post tracheostomy, status post PEG tube placement, comes in with fever, chills, and shortness of breath. The patient, who has history of old CVA, respiratory failure, failure to thrive, noncommunicative, comes in with shortness of breath and worsening condition. I was asked to see him. The patient, who has multiple pressure ulcers. He had left lateral malleolus stage IV, 2.5 x 2.5 x 0.3 cm, has right foot ulcer, which is also unstageable. He has multiple ulcers, large groin, stage IV ulcer. Please refer to the Wound Care notes. LABORATORY DATA: The patient's cultures reviewed. He had Pseudomonas aeruginosa. Blood cultures are pending. His white count 9.5 and hemoglobin 8.8. His sodium 142, potassium 4.4, and creatinine 1.03. MEDICATION LIST: He is on vancomycin p.o. IMAGING DATA: His chest x-ray showed multifocal infiltrate. PHYSICAL EXAMINATION: GENERAL: He is alert, noncommunicative. VITAL SIGNS: Stable, afebrile. HEENT: He is not icteric. NECK: Supple. CHEST: Rhonchi bilateral. HEART: S1 and S2. ABDOMEN: Soft. Bowel sounds present. EXTREMITIES: No edema. IMPRESSION: 1. Sepsis on admission, aspiration pneumonia, recurrent colonization, multidrug-resistant, decubitus ulcers, some of them are osteomyelitis. 2. Malnutrition. 3. Status post PEG, status post trach. 4. Healthcare-associated pneumonia, aspiration pneumonia, sepsis on admission. Prognosis is extremely poor really. He received meropenem. He received vancomycin. I would recommend to put him on cefepime, vancomycin, and oral Flagyl. Apparently, he has history of Clostridium difficile. Presently, his prognosis is extremely poor. Consider comfort care. We will follow. MD RACHEL Naik/ISABELLE /[id number]
[2020-05-13] MEDS ORDERED: MEROPENEM 500MG/ NS 50ML 50 ML IV SCH (14:00)
[2020-05-13] MEDS: VANCOMYCIN 1GM/NS 250 ML 250 ML IV SCH (14:10)
--- NOTE | 2020-05-13 14:37 | NUR ---
Patient with sudden Afib c RVR in rate of 190s. Spoke with Bhavin Sanches and Norman; orders rec'd.
[2020-05-13] MEDS ORDERED: AMIODARONE HCL 150MG 100 ML IV ONE (14:45)
[2020-05-13] MEDS ORDERED: AMIODARONE HCL 200 MG TAB PO SCH (14:45)
[2020-05-13] MEDS ORDERED: AMIODARONE HCL 100 ML IV ONE (15:00)
--- NOTE | 2020-05-13 15:25 | NUR ---
Consult called to Dr Rodriguez.
[2020-05-13] MEDS: FENTANYL 2000MCG/NS 250 250 ML IV PRN (15:44)
[2020-05-13] MEDS ORDERED: AMIODARONE 900MG 500 ML IV ONE (16:00)
[2020-05-13] MEDS ORDERED: AMIODARONE HCL IV ONE (16:00)
[2020-05-13 16:01] LABS: BASOPHILS # (AUTO) 0.1 (0.0-0.1); BASOPHILS % 1.1 % (0.0-1.0); EOSINOPHILS # (AUTO) 0.1 (0.0-0.4); EOSINOPHILS % 0.9 % (0.0-6.0); HEMATOCRIT 29.6 % (38.2-49.6); LYMPHOCYTES # (AUTO) 0.9 (1.0-3.2); LYMPHOCYTES % 11.2 % (18.0-39.1); MEAN CORPUSCULAR HEMOGLOBIN 25.4 pg (28-32); MEAN CORPUSCULAR HGB CONC 30.4 g/dL (31-35); MEAN CORPUSCULAR VOLUME 83.6 fL (81-99); MONOCYTES # (AUTO) 0.3 (0.2-0.8); MONOCYTES % 4.2 % (4.4-11.3); NEUTROPHILS # (AUTO) 6.7 (2.1-6.9); NEUTROPHILS % 81.9 % (38.7-80.0); RED BLOOD COUNT 3.54 x10e6/uL (4.3-5.7); RED CELL DISTRIBUTION WIDTH 26.5 % (11.7-14.4)
[2020-05-13 16:03] LABS: PLATELET COUNT 41 x10e3/uL (140-360)
--- NOTE | 2020-05-13 16:30 | NUR ---
Dr Hsieh's office called to report platelet count, awaiting return call at this time.
[2020-05-13 16:40] LABS: THYROID STIMULATING HORMONE 10.323 uIU/mL (0.350-4.940)
[2020-05-13] MEDS: DIGOXIN INJ 0.25 MG/ML 2 ML AMP IV SCH ×2 (17:36→21:55)
--- NOTE | 2020-05-13 17:38 | NUR ---
Dr Hsieh aware of PLT
[2020-05-13] MEDS ORDERED: DIGOXIN INJ 0.25 MG/ML 2 ML AMP IV NR (19:15)
[2020-05-13] MEDS ORDERED: LEVOTHYROXINE SODIUM 100 MCG TAB PO NR (19:15)
--- NOTE | 2020-05-13 19:37 | Consultation ---
DATE OF CONSULTATION: 05/13/2020 REASON FOR CONSULTATION: Atrial fibrillation. CHIEF COMPLAINT: Septic shock, pneumonia, and respiratory failure. 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 The patient apparently was at a [facility], however, was noted to be short of breath and vomiting, was sent to [facility] for further evaluation, was noted with pneumonia and also bacteremic, hypotensive, started on Levophed drip. The patient was noted to be in atrial fibrillation with RVR. Cardiology was consulted to evaluate the patient. The patient is seen in room. He is in a vegetative state, unresponsive on ventilator, on Levophed drip 18 mcg. Unable to obtain any information from the patient. Also, the patient was noted to be anemic with a hemoglobin of 7, was given a unit of blood and also was noted with platelets in the 20s, was given also platelet transfusion. 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 PAST SURGICAL HISTORY: Tracheostomy and PEG. SOCIAL HISTORY: Apparently, the patient is residing in [facility]. FAMILY HISTORY: Unable to obtain. REVIEW OF SYSTEMS: Unable to obtain. MEDICATIONS: From outside facility; amiodarone 200 mg daily, clonidine 0.1 mg q.6 p.r.n., Pepcid 20 mg b.i.d., Keppra 1500 mg b.i.d., metoprolol 100 mg b.i.d., and Xarelto 15 mg b.i.d. PHYSICAL EXAMINATION: GENERAL: Appears very ill, on trach/ventilator. Unable to get any information. He is in a vegetative state. VITAL SIGNS: Temperature 98.2, pulse 109, respiratory rate 38, blood pressure 103/63, and pulse ox 100% on 50% O2. SKIN: Multiple sores and wounds. HEENT: Pupils are equal and reactive. NECK: No JVD. No carotid bruit. Trach noted. HEART: Irregular rate. Soft systolic murmur heard in the right upper sternal border. ABDOMEN: Soft and nontender. PEG tube noted. : Church to gravity. RECTAL: With a fecal management system. MUSCULOSKELETAL: Lower extremity edema. VASCULAR: +2 radial pulses, +1 DP pulses bilaterally. NEUROLOGIC: Unable to obtain. LABORATORY DATA: White count 13, hemoglobin 7, hematocrit 24, and platelets 70. Sodium 142, potassium 4.1, chloride 111, BUN 22, and creatinine 1.0. Troponin 0.02, next 0.04, next 0.02. Chest x-ray showing bilateral opacities, left greater than right. Microbiology showing sputum with Pseudomonas and gram-negative bacilli. Blood showing gram-negative bacilli. EKG, sinus rhythm. However, on telemetry, the patient has atrial fibrillation with RVR. ASSESSMENT: 1. Septic shock. 2. Pneumonia. 3. Bacteremia. 4. Cerebrovascular accident history in vegetative state. 5. [id number] respiratory failure. 6. Paroxysmal atrial fibrillation. 7. Anemia. 8. Thrombocytopenia. PLAN: The patient presents from [facility] with shortness of breath and respiratory failure, noted to be in septic shock with pneumonia and bacteremia. Antibiotic therapy as per ID service. The patient is on Levophed. We will wean as BP allows. We will start the patient on amiodarone drip. We will get an echo to evaluate heart function and structure. ICU care. Overall, the patient appears to be with poor prognosis. We will continue to monitor and adjust cardiac therapy as clinical course dictates. Thank you very much for this consult. Dictated by Jared Garcia NP Carl Rodriguez MD DC/ISABELLE /[id number]
--- NOTE | 2020-05-13 20:28 | Progress Note ---
DATE: 05/13/2020 SUBJECTIVE: Scott is a 54-year-old male, was referred to me for evaluation of anemia and thrombocytopenia. The patient's platelets were as low as 26,000 and hemoglobin of 7.3 on 05/12. I had given him platelets, it went up to 58,000. Hemoglobin today is 9 with platelets of 41,000. The patient is septic. Blood cultures are positive. Sputum culture had grown Pseudomonas. The patient is still on pressors and antibiotics. The patient is also hypothyroid, that the TSH is more than 10. Infectious Disease j2ee consultant is on the case, bead picker is on the case, multi spindle operator is on the case, and I will confine myself to Hematology only. The patient's Clostridium difficile is also positive. The patient is still on pressors. This is a hospice candidate; however, until the family decides, I will continue to support him. MD BOB Harkins/ISABELLE /[id number]
[2020-05-14] VITALS (25 sets, daily range): BP systolic 92–131; BP diastolic 49–87
[2020-05-14] MEDS: VANCOMYCIN 250MG/5ML ORAL SOLN PEG SCH ×4 (00:02→17:02)
[2020-05-14] MEDS: NOREPINEPHRINE 8 MG/D5W 250 ML 250 ML IV PRN ×3 (00:06→18:23)
[2020-05-14] MEDS ORDERED: CEFEPIME 1GM/NS 0.9% 50 ML 50 ML IV SCH (02:00)
[2020-05-14] MEDS: FENTANYL 2000MCG/NS 250 250 ML IV PRN ×2 (02:14→18:23)
[2020-05-14 05:49] LABS: BASOPHILS % 0.4 % (0.0-1.0); EOSINOPHILS # (AUTO) 0.1 (0.0-0.4); EOSINOPHILS % 1.7 % (0.0-6.0); HEMATOCRIT 28.5 % (38.2-49.6); HEMOGLOBIN 9.1 g/dL (14.0-18.0); MEAN CORPUSCULAR HEMOGLOBIN 26.5 pg (28-32); MEAN CORPUSCULAR HGB CONC 31.9 g/dL (31-35); MEAN CORPUSCULAR VOLUME 82.8 fL (81-99); MONOCYTES # (AUTO) 0.4 (0.2-0.8); MONOCYTES % 4.6 % (4.4-11.3); NEUTROPHILS # (AUTO) 6.2 (2.1-6.9); NEUTROPHILS % 79.3 % (38.7-80.0); RED BLOOD COUNT 3.44 x10e6/uL (4.3-5.7); RED CELL DISTRIBUTION WIDTH 27.2 % (11.7-14.4)
[2020-05-14 05:52] LABS: PLATELET COUNT 35 x10e3/uL (140-360)
[2020-05-14 05:57] LABS: ANION GAP 9.4 mmol/L (8-16); BLOOD UREA NITROGEN 20 mg/dL (7-26); BUN/CREATININE RATIO 20 (6-25); CALCIUM 10.5 mg/dL (8.4-10.2); CARBON DIOXIDE 26 mmol/L (22-29); CHLORIDE 108 mmol/L (98-107); CREATININE, SERUM 0.98 mg/dL (0.72-1.25); EST GLOMERULAR FILTRATION RATE > 60 ML/MIN (60-); GLUCOSE 85 mg/dL (74-118); POTASSIUM 4.4 mmol/L (3.5-5.1); SODIUM 139 mmol/L (136-145)
[2020-05-14] MEDS: LEVOTHYROXINE SODIUM 100 MCG TAB PO SCH (06:33)
[2020-05-14 07:19] LABS: ANISOCYTOSIS MODERATE; EOSINOPHILS % (MANUAL) 6 % (0-7); LYMPHOCYTES % (MANUAL) 10 % (19-48); MONOCYTES % (MANUAL) 2 % (3.4-9.0); NEUTROPHILS % (MANUAL) 82 % (40-74); TARGET CELLS MODERATE
[2020-05-14 07:21] LABS: HELMET CELLS RARE; TEAR DROP CELLS FEW
[2020-05-14 07:22] LABS: HYPOCHROMASIA SLIGHT; PLATELET ESTIMATE MARKEDLY DECREASED; PLATELET MORPHOLOGY COMMENT NORMAL; RBC MORPHOLOGY COMMENT ABNORMAL
[2020-05-14] MEDS: PANTOPRAZOLE SOD 40 MG TABEC PO SCH (08:30)
--- NOTE | 2020-05-14 08:31 | Diagnostic Imaging Report ---
Examination: Single AP view of the chest. COMPARISON: 05/13/2020 INDICATION: Hospital-acquired pneumonia DISCUSSION: Tracheostomy and right upper extremity PICC are unchanged in position. As before the lungs are hyperexpanded with confluent interstitial and alveolar opacities throughout the right lung and predominantly in the left mid and lower lung zones. Concentric right pleural effusion versus pleural thickening is unchanged. No new consolidations. Stable cardiomediastinal contour. Multiple coronary stents. No acute osseous abnormalities. IMPRESSION: Stable appearance of support lines and tubes. Unchanged confluent interstitial and alveolar opacities bilaterally, with a concentric right pleural effusion versus pleural thickening. Signed by: Dr. Jared Daigle M.D. on 05/14/2020 8:28 AM
[2020-05-14] MEDS: THIAMINE HCL INJ 100 MG/ML 2ML VIAL IV SCH (08:34)
[2020-05-14] MEDS: FERROUS SULFATE 300 MG/5 ML LIQD PEG SCH (08:34)
[2020-05-14] MEDS: LEVETIRACETAM 500 MG TAB PO SCH ×2 (08:34→16:17)
[2020-05-14] MEDS: SODIUM HYPOCHLORITE 0.25% 480 ML SOLN IR SCH (10:13)
--- NOTE | 2020-05-14 10:44 | NUR ---
INFECTIOUS DISEASE CONSULT NOTE DR. SUHAS WOODY CC: Bacteremia and PNA, CDIFF HPI: 54-year-old male, well known to me from previous admission and [facility]. The patient is in persistent vegetative state with chronic respiratory failure. He is vent-dependent, has multiple decubitus ulcer, anemia, has been at [facility] in the past and then remained in ICU. Currently, came in with worsening shortness of breath and the patient's chest x-ray is showing evidence of bilateral airspace opacities with pneumonia. The patient is tachypneic on mechanical ventilator. History obtained from the chart PMH: vegetative state, HTN, multiple infections PAST SURGICAL:Trach, PEG SOCIAL: unknown FAMILY: unknown, nursing hoome ROS: unable to obtain due to vegetative state ALL 14 POINT ROS NEG UNLESS OTHERWISE NOTED LABS: reviewed RADIOLOGY: reviewed PHYSICAL EXAM GENERAL: vent dependent, critically ill HEENT: normocephalic, atraumatic CV: s1, s2, no s3, s4 CHEST: diminished, rhonchi ABD: PEG, soft, non-tender EXT: contractures, multiple wounds NEURO: unable to assess IMPRESSION: Bacteremia Chronic wounds Chronic hypoxic respiratory failure with vent dependence and trach HAP CDIFF PLAN: Gram neg rods in the blood Merrem, oral vancomycin, and oral Flagyl overall prognosis is poor Marianela Marin MSN, [employer] LUMBER GRADER, [facility]- Suhas Woody M.D.
[2020-05-14] MEDS: VASOPRESSIN 60 UNIT in DEXTROSE 5% 50ML 57 ML IV SCH (11:30)
[2020-05-14] MEDS: VANCOMYCIN 1GM/NS 250 ML 250 ML IV SCH (11:56)
--- NOTE | 2020-05-14 13:00 | NUR ---
CALL TO PT'S COUSIN; MAGALY SANTIAGO @ [phone]. DISCUSSED LTAC CHOICE. STATES THE PT WAS DENIED [facility] IN THE PAST FROM ANOTHER FACILITY. STATES SHE WAS NOT SURE WHY. PROVIDED CHOICE FOR [facility].
[2020-05-14] MEDS: MEROPENEM 500MG/ NS 50ML 50 ML IV SCH ×2 (13:37→18:51)
--- NOTE | 2020-05-14 14:27 | NUR ---
CALL TO MARIAH CORTEZ TO ASSESS IF [facility] MED[facility] WAS ACCEPTED. STATES THE INSURANCE DOES NOT HAVE LTACH BENEFITS. DR STONER WAS NOTIFIED. CALL TO BEDSIDE RN; GUERO TO NOTIFY. Addendum: 05/14/20 at 1430 by Lynsey Torres CM NOTIFIED PT'S COUSIN ALSO VIA .
[2020-05-14] MEDS: AMIODARONE HCL 200 MG TAB PEG SCH (16:17)
--- NOTE | 2020-05-14 18:10 | NUR ---
Wound care done to all wounds per orders. Dr. Gilbert notifieid of blood culture results, antibiotics changed. Dr. Matthews continuity writer for Dr. Carney notified of critical platelets, no new orders. Will continue to monitor patient.
[2020-05-15] VITALS (24 sets, daily range): BP systolic 91–121; BP diastolic 37–75
[2020-05-15] MEDS: MEROPENEM 500MG/ NS 50ML 50 ML IV SCH ×5 (01:00→23:31)
[2020-05-15] MEDS: VANCOMYCIN 250MG/5ML ORAL SOLN PEG SCH ×5 (01:00→23:58)
[2020-05-15 05:21] LABS: BASOPHILS # (AUTO) 0.1 (0.0-0.1); BASOPHILS % 1.3 % (0.0-1.0); EOSINOPHILS # (AUTO) 0.1 (0.0-0.4); EOSINOPHILS % 1.3 % (0.0-6.0); HEMATOCRIT 27.3 % (38.2-49.6); HEMOGLOBIN 8.5 g/dL (14.0-18.0); LYMPHOCYTES # (AUTO) 1.2 (1.0-3.2); LYMPHOCYTES % 14.4 % (18.0-39.1); MEAN CORPUSCULAR HEMOGLOBIN 26.1 pg (28-32); MEAN CORPUSCULAR HGB CONC 31.1 g/dL (31-35); MEAN CORPUSCULAR VOLUME 83.7 fL (81-99); MONOCYTES # (AUTO) 0.6 (0.2-0.8); MONOCYTES % 6.7 % (4.4-11.3); NEUTROPHILS # (AUTO) 6.5 (2.1-6.9); NEUTROPHILS % 75.5 % (38.7-80.0); RED BLOOD COUNT 3.26 x10e6/uL (4.3-5.7); RED CELL DISTRIBUTION WIDTH 27.4 % (11.7-14.4)
[2020-05-15 05:38] LABS: ALANINE AMINOTRANSFERASE 9 IU/L (0-55); ALBUMIN 1.1 g/dL (3.5-5.0); ALBUMIN/GLOBULIN RATIO 0.2 (0.8-2.0); ALKALINE PHOSPHATASE 75 IU/L (40-150); ANION GAP 6.9 mmol/L (8-16); BLOOD UREA NITROGEN 22 mg/dL (7-26); BUN/CREATININE RATIO 21 (6-25); CALCIUM 10.8 mg/dL (8.4-10.2); CARBON DIOXIDE 26 mmol/L (22-29); CHLORIDE 106 mmol/L (98-107); CREATININE, SERUM 1.04 mg/dL (0.72-1.25); EST GLOMERULAR FILTRATION RATE > 60 ML/MIN (60-); GLUCOSE 153 mg/dL (74-118); POTASSIUM 3.9 mmol/L (3.5-5.1); SODIUM 135 mmol/L (136-145)
[2020-05-15 05:55] LABS: PLATELET COUNT 42 x10e3/uL (140-360)
[2020-05-15] MEDS: LEVOTHYROXINE SODIUM 100 MCG TAB PO SCH (06:28)
[2020-05-15] MEDS: LORAZEPAM 0.5 MG TAB PO PRN ×3 (06:29→23:06)
--- NOTE | 2020-05-15 07:51 | Diagnostic Imaging Report ---
EXAMINATION: CHEST SINGLE (PORTABLE) INDICATION: ^sob ^[id number] ^[id number] COMPARISON: 05/14/2020 FINDINGS: AP view TUBES and LINES: Stable right upper extremity PICC and tracheostomy tube. LUNGS: Lungs are well inflated. Persistent diffuse bilateral alveolar and reticular opacities. PLEURA: Unchanged moderate right pleural effusion and a small left pleural effusion. No pneumothorax. HEART AND MEDIASTINUM: The cardiomediastinal silhouette is unremarkable.. BONES AND SOFT TISSUES: No acute osseous lesion. Soft tissues are unremarkable. UPPER ABDOMEN: No free air under the diaphragm. IMPRESSION: Persistent diffuse bilateral multifocal pneumonia with superimposed ARDS and moderate right/small left pleural effusions. Signed by: Dr. Kaycee Dominguez M.D. on 05/15/2020 7:48 AM
[2020-05-15] MEDS: THIAMINE HCL INJ 100 MG/ML 2ML VIAL IV SCH (08:01)
[2020-05-15] MEDS: SODIUM HYPOCHLORITE 0.25% 480 ML SOLN IR SCH (08:01)
[2020-05-15] MEDS: PANTOPRAZOLE SOD 40 MG TABEC PO SCH (08:01)
[2020-05-15] MEDS: FERROUS SULFATE 300 MG/5 ML LIQD PEG SCH (08:01)
[2020-05-15] MEDS: AMIODARONE HCL 200 MG TAB PEG SCH ×3 (08:01→21:17)
[2020-05-15] MEDS: LEVETIRACETAM 500 MG TAB PO SCH ×2 (08:02→16:35)
[2020-05-15 08:20] LABS: ANISOCYTOSIS SLIGHT; BAND NEUTROPHILS % (MANUAL) 3 %; EOSINOPHILS % (MANUAL) 1 % (0-7); HYPOCHROMASIA SLIGHT; LYMPHOCYTES % (MANUAL) 16 % (19-48); MONOCYTES % (MANUAL) 5 % (3.4-9.0); NEUTROPHILS % (MANUAL) 73 % (40-74); RBC MORPHOLOGY COMMENT ABNORMAL
[2020-05-15 08:21] LABS: PLATELET ESTIMATE MARKEDLY DECREASED; PLATELET MORPHOLOGY COMMENT FEW LARGE
[2020-05-15] MEDS: VASOPRESSIN 60 UNIT in DEXTROSE 5% 50ML 57 ML IV SCH (11:30)
[2020-05-15] MEDS: VANCOMYCIN 1GM/NS 250 ML 250 ML IV SCH (11:54)
--- NOTE | 2020-05-15 13:37 | Progress Note ---
DATE: 05/15/2020 CHIEF COMPLAINT/HISTORY OF PRESENT ILLNESS: This is a 54-year-old man, whose primary treating diagnosis acute on chronic respiratory failure. The patient is ventilator dependent and has a tracheostomy tube in place. The patient was transferred from a local half-way facility namely the [facility] because of worsening respiratory status. The sputum cultures on this admission reveal Pseudomonas aeruginosa and Klebsiella pneumoniae, ESBL bacterial species. Both these bacterial species are found to be sensitive to meropenem, which he is receiving. Blood cultures are revealing Klebsiella pneumoniae, ESBL, bacterial species also. Chest film performed this morning, May 15, 2020, revealed persistent diffuse bilateral multifocal pneumonia with likely superimposed ARDS. Today's blood work revealed BUN and creatinine of 22 and 1.04 respectively. The patient's albumin is 1.1 g/dL. The patient's hemoglobin today is 8.5 g/dL. The patient's white blood cell count today is 8600 with 73% segmented neutrophils, 16% lymphocytes and 3% bands. REVIEW OF SYSTEMS: As per HPI. PHYSICAL EXAMINATION: GENERAL: He is on a ventilator via tracheostomy tube, minimally responsive. VITAL SIGNS: Blood pressure 100/50, heart rate is 104, respiratory rate is 16. He is on AC mode, FiO2 is 50%. INTEGUMENT: Skin is warm and dry. The patient has widespread numerous sick decubiti ulcers that include, but are not limited to his bilateral shoulders, bilateral elbows and back as well as sacral/buttock area. HEENT: Anicteric sclerae, moist mucous membranes. NECK: Supple. His tracheostomy tube placed and connected to ventilator. CARDIOVASCULAR: Tachycardic rate, regular rhythm. The patient has crackles and rhonchi bilaterally. ABDOMEN: Soft. He has G-tube in place. Tube feeds are being held due to high residuals. EXTREMITIES: No edema or deformity, but he has muscle wasting. NEUROLOGIC: He is bed-bound, minimally responsive. DIAGNOSES: 1. Sepsis secondary to Klebsiella pneumoniae extended-spectrum beta-lactamase bacteremia. 2. Bilateral Pseudomonas aeruginosa and Klebsiella pneumoniae pneumonia. 3. Acute on chronic respiratory failure. 4. Ventilator dependence. 5. Severe protein-calorie malnutrition. 6. Numerous decubiti ulcers. PLAN: 1. Continue intravenous vancomycin and meropenem. 2. Wound care to the patient's numerous decubiti ulcers. 3. We will hold tube feeds since he is experiencing high residuals. 4. Ventilator management as per health benefits specialist. 5. Palliative treatment from hospice care is very appropriate for this patient. 6. The patient's code status should be discussed, re-evaluated with the patient's medical power of drama critic. I spent 35 minutes in the care of this intensive care unit patient. MD MAX Dewey/ISABELLE /[id number] CAROLIN
[2020-05-15] MEDS: NOREPINEPHRINE 8 MG/D5W 250 ML 250 ML IV PRN ×2 (14:00→22:42)
--- NOTE | 2020-05-15 14:37 | Progress Note ---
DATE: SUBJECTIVE: Mr. Aramis Chavez remains in intensive care unit. The patient remains on the vent, noncommunicative, status post trach. REVIEW OF SYSTEMS: Could not be obtained. PHYSICAL EXAMINATION: GENERAL: Intubated, noncommunicative. VITAL SIGNS: Stable, currently afebrile. HEENT: He is not icteric. NECK: Supple. CHEST: Few crackles. HEART: S1, S2. ABDOMEN: Soft. Bowel sounds present. EXTREMITIES: No edema. LABORATORY DATA: His blood culture showed Klebsiella pneumoniae ESBL. Sputum cultures showed Pseudomonas and Klebsiella pneumoniae ESBL. His white count 8.4, hemoglobin 8.5. His sodium 135, potassium 3.9, and creatinine 1.04. The patient is currently on meropenem and vancomycin. IMPRESSION: Sepsis on admission, bacteremia with extended-spectrum beta-lactamases pneumonia. We will discontinue vancomycin. Continue meropenem. Continue supportive care. Prognosis is poor. We will follow. MD RACHEL Naik/ISABELLE /[id number]
--- NOTE | 2020-05-15 14:42 | Progress Note ---
DATE: Progress Note. SUBJECTIVE: The patient is an male with tracheostomy. He is in persistent vegetative state and is not able to communicate. He has multifocal pneumonia. The patient is vent dependent. PHYSICAL EXAMINATION: VITAL SIGNS: Temperature 99, pulse of 104, blood pressure 121/73. CHEST: Clear to auscultation. The patient has tracheostomy. ABDOMEN: Soft. EXTREMITIES: Contracted. Multiple decubitus ulcers. LABORATORY DATA: Labs; white count of 8000, hemoglobin 8.5, platelets 42. Chemistry is within normal limits. ASSESSMENT: Sepsis due to the ESBL bacteremia, bilateral Pseudomonas pneumonia, acute on chronic respiratory failure. Persistent vegetative state, tracheostomy, PEG tube status. PLAN: Continue the patient on antibiotics per Infectious Disease recommendations. Overall, the patient's prognosis is extremely poor. The patient is septic. High residual from PEG feeding, withhold the PEG feeds and resume possibly in the next 24 hour on the Keppra as patient has history of seizure disorder. MD ELVER Charles/MODL /[id number]
--- NOTE | 2020-05-15 15:34 | NUR ---
Nutrition Intervention Note RD Recommendation(s) for Physician: - Recommend resuming TF when appropriate and modifying formula to Vital AF with goal rate of 70 ml/hr (to provide 2016 kcal and 126 gm protein) to better meet needs. - Water flushes and fluid management per MD. - Please give Ismael 1 packet BID per PEG to promote wound healing. - Recommend Vitamin C 500 mg BID and Zinc Sulfate 220 mg/day to promote wound healing. Pt meets criteria for moderate protein calorie malnutrition Plan of Care: RD following, monitoring for tolerance and adequacy. TF, MVI, and supplement rec's. Nutrition reason for involvement: new TF RD Assessment 05/15: Follow up. Chart reviewed. RN stated pt TF is currently on hold since pt had vomited last night and had a residual of 900 mL this morning. Pt was previously receiving TF @ 40 mL/her per documentation. Recommend resuming TF when appropriate. Tube feed formula change recommendation was provided to RN. Will continue to monitor. 05/12: 54 YOM admitted for aspiration pneumonia, seen today per TF on admit. Pt transferred from ER to ICU now. Pt chronic trach and PEG, currently on vent and receiving TF at 40 ml/hr. Pt on high Levophed currently. No prior admits per chart, unable to obtain wt or TF hx currently. Pt with multiple wounds on admit per MD notes. Awaiting wound care consult. TF and supplement rec's provided and placed in chart. Chart reviewed. Will continue to monitor. Principal Problems/Diagnoses: aspiration pneumonia, hypoglycemia PMH: organic brain syndrome, CVA, persistent vegetative state, bipolar, HTN, multiple wounds, contractures GI: liquid stools, +PEG Skin: Per MD note- L ankle stage IV, R foot necrotic, unstagable, L groin stage IV, R inner thigh stage III, PEG site loose + drainage, sacral area stage IV, L hip stage IV, wounds to upper back Labs: 05/15: Na 135, K 3.9, BUN 22, Cr 1.04, Glu 153, Ca 10.8 05/12: Na 142, K 4.2, BUN 26, Cr 1.12, Gluc 61 Meds: antibiotics, protonix, ferrous sulfate, thiamine, levothyroxine, fentanyl, norepinephrine, vasopressin Ht: 70 in Wt: 144 lbs (05/15) 153.19 lb (05/12) Suspect possible weight error BMI: 22 kg/m2 (using wt of 153.19 lbs) IBW: 166 lb Malnutrition Evaluation (05/12/20) The patient meets criteria for MODERATE protein-calorie malnutrition. Energy intake: CHRISTIANNE, pt non-verbal and TF dependent Weight loss: CHRISTIANNE, no prior admit wt available Fat loss: moderate, very little skinfold thickness Muscle loss: moderate, temporal wasting, clavicle some protrusion Supporting Evidence: Fluid accumulation: none observed Functional Status: poor functional status at baseline Nutrition Prescription (Diet Order): Osmolite 1.2, advance to goal rate of 60 ml/hr. TF is currently on hold Estimated Nutritional Needs: 1473-6599 calories/day (28-32 kcal/kg CBW) Weight: 153.19 lbs 84-139 g protein/day (1.2-2 g pro/kg CBW) Weight: 153.19 lbs Diet Adequacy: Not meeting calorie needs, Not meeting protein needs Diet Tolerance: not tolerating TF, TF currently on hold Diet Education Needs Assessment: Diet education not indicated, patient TF dependent. Nutrition Care Level: high- multiple wounds Nutrition Diagnosis: Increased energy and protein needs related to skin integrity as evidenced by multiple wounds present on admit. Goal: Patient will meet 75-100% of estimated needs by follow up Progress: goal not met Interventions: - Composition, Rate, Route, Recommended Modifications, Multivitamin/mineral supplement therapy, Collaboration with other providers, Ismael Monitoring/Evaluation: - Total energy intake, Total protein intake, Formula/Solution, Prescription medication Signed: Herlinda Diaz RD ,[place]
--- NOTE | 2020-05-15 18:51 | NUR ---
Residuals checked this AM, residual 900. Dr. Casas informed and Dr. Malik informed. Dr. Malik gave orders to hold tube feeds and restart at low rate later in shift. Dr. Rodriguez informed of HR 140's afib, orders given for amiodarone TID.
[2020-05-15] MEDS: FENTANYL 2000MCG/NS 250 250 ML IV PRN (19:55)
[2020-05-16] VITALS (25 sets, daily range): BP systolic 96–124; BP diastolic 51–78
[2020-05-16 05:22] LABS: BASOPHILS # (AUTO) 0.1 (0.0-0.1); BASOPHILS % 0.5 % (0.0-1.0); EOSINOPHILS # (AUTO) 0.2 (0.0-0.4); EOSINOPHILS % 1.3 % (0.0-6.0); HEMOGLOBIN 8.1 g/dL (14.0-18.0); MEAN CORPUSCULAR HEMOGLOBIN 25.6 pg (28-32); MEAN CORPUSCULAR HGB CONC 31.2 g/dL (31-35); MEAN CORPUSCULAR VOLUME 82.3 fL (81-99); MONOCYTES # (AUTO) 0.8 (0.2-0.8); MONOCYTES % 6.3 % (4.4-11.3); NEUTROPHILS # (AUTO) 9.3 (2.1-6.9); NEUTROPHILS % 75.4 % (38.7-80.0); PLATELET COUNT 76 x10e3/uL (140-360); RED BLOOD COUNT 3.16 x10e6/uL (4.3-5.7); RED CELL DISTRIBUTION WIDTH 27.8 % (11.7-14.4)
[2020-05-16 05:43] LABS: ALANINE AMINOTRANSFERASE 10 IU/L (0-55); ALBUMIN/GLOBULIN RATIO 0.2 (0.8-2.0); ALKALINE PHOSPHATASE 101 IU/L (40-150); ANION GAP 8.6 mmol/L (8-16); BLOOD UREA NITROGEN 21 mg/dL (7-26); BUN/CREATININE RATIO 19 (6-25); CALCIUM 11.7 mg/dL (8.4-10.2); CARBON DIOXIDE 27 mmol/L (22-29); CHLORIDE 106 mmol/L (98-107); EST GLOMERULAR FILTRATION RATE > 60 ML/MIN (60-); GLUCOSE 66 mg/dL (74-118); POTASSIUM 3.6 mmol/L (3.5-5.1); SODIUM 138 mmol/L (136-145)
[2020-05-16] MEDS: MEROPENEM 500MG/ NS 50ML 50 ML IV SCH ×4 (05:58→23:35)
[2020-05-16] MEDS ORDERED: ALBUMIN 25% 25GM 100ML 0.25 GM/ML BTL IV SCH (06:00)
[2020-05-16] MEDS: VANCOMYCIN 250MG/5ML ORAL SOLN PEG SCH ×4 (06:13→23:36)
[2020-05-16] MEDS: LEVOTHYROXINE SODIUM 100 MCG TAB PO SCH (06:13)
[2020-05-16] MEDS ORDERED: ALBUMIN 25% 12.5GM 50ML 100 ML IV ONE (06:29)
[2020-05-16] MEDS: ALBUMIN 25% 25GM 100ML 100 ML IV SCH ×3 (06:31→17:33)
--- NOTE | 2020-05-16 07:51 | Diagnostic Imaging Report ---
EXAMINATION: CHEST SINGLE (PORTABLE) INDICATION: bilateral pneumonia COMPARISON: Chest radiograph 05/15/2020. FINDINGS: AP view TUBES and LINES: Stable right upper extremity PICC and tracheostomy tube. LUNGS: Lungs are moderately inflated. Persistent diffuse bilateral alveolar and reticular opacities. PLEURA: Unchanged moderate right pleural effusion and a small left pleural effusion. No pneumothorax. HEART AND MEDIASTINUM: The cardiomediastinal silhouette is unremarkable.. BONES AND SOFT TISSUES: No acute osseous abnormality. Soft tissues are unremarkable. UPPER ABDOMEN: No free air under the diaphragm. IMPRESSION: Unchanged multifocal bilateral opacities compatible with multifocal pneumonia. Persistent moderate right and small left pleural effusions. Signed by: Dr. Sean Ragsdale MD on 05/16/2020 7:48 AM
[2020-05-16] MEDS: THIAMINE HCL INJ 100 MG/ML 2ML VIAL IV SCH (09:09)
[2020-05-16] MEDS: PANTOPRAZOLE SOD 40 MG TABEC PO SCH (09:09)
[2020-05-16] MEDS: SODIUM HYPOCHLORITE 0.25% 480 ML SOLN IR SCH (09:09)
[2020-05-16] MEDS: AMIODARONE HCL 200 MG TAB PEG SCH ×3 (09:10→21:00)
[2020-05-16] MEDS: LEVETIRACETAM 500 MG TAB PO SCH ×2 (09:10→16:00)
[2020-05-16] MEDS: FERROUS SULFATE 300 MG/5 ML LIQD PEG SCH (09:10)
[2020-05-16] MEDS: LORAZEPAM 0.5 MG TAB PO PRN (09:11)
[2020-05-16] MEDS ORDERED: PAMIDRONATE DISODIUM 90 MG in SODIUM CHLORIDE 0.9% 1000ML 1,000 ML IV ONE (10:30)
--- NOTE | 2020-05-16 11:26 | Diagnostic Imaging Report ---
Exam: KUB -3 views Clinical History: Hospital-acquired pneumonia. Comparison: Same day chest radiograph. Findings: Focally dilated likely small bowel loop within the mid abdomen, measuring up to 4.1 cm. Otherwise nonspecific bowel gas pattern with paucity of air. No evidence of free intraperitoneal air. Gastrostomy tube projects over the left mid abdomen. Temperature probe overlies the pelvis. Mild osteopenia. Heterotopic ossification projects over the right proximal femur. Possible erosive changes of the right greater than left femoral heads. Degenerative changes of bilateral hips. Please refer to the same day chest radiograph for details of multifocal pneumonia and bilateral pleural effusions. Impression: Focally dilated likely small bowel loop in the midabdomen is nonspecific with a paucity of air in the remaining bowel loops. This may represent ileus, however follow-up KUB is recommended to evaluate for small bowel obstruction. Possible erosive changes of bilateral femoral heads with associated degenerative changes and heterotopic ossification overlying the right proximal femur. Infectious process is possible. Recommend clinical correlation and dedicated pelvic/hip radiographs. Signed by: Dr. Sean Ragsdale MD on 05/16/2020 11:23 AM
[2020-05-16] MEDS: VASOPRESSIN 60 UNIT in DEXTROSE 5% 50ML 57 ML IV SCH (11:30)
--- NOTE | 2020-05-16 12:26 | Progress Note ---
DATE: 05/16/2020 SUBJECTIVE: This is a 54-year-old male referred to me for evaluation of thrombocytopenia. The patient's hemoglobin today is 8.1, white count 12,280, and platelets of 76,000. The patient is septic with sputum growing Pseudomonas and blood growing Klebsiella. The patient's lab consists of the calcium still at 11.7. The patient's BUN and creatinine are reasonable at 21 and 1.1. Total protein is low at 5.8, albumin very low at 1.0, and globulin slightly high at 4.8. I will give him Aredia today, quantitation of immunoglobulins will be done; however, this would be of academic interest. The patient again as I have dictated before is a hospice candidate. MD BOB Harkins/ISABELLE /[id number]
[2020-05-16 12:27] LABS: TEAR DROP CELLS FEW
[2020-05-16 12:28] LABS: HYPOCHROMASIA MOD; RBC MORPHOLOGY COMMENT ABNORMAL; SCHISTOCYTES FEW
--- NOTE | 2020-05-16 13:00 | Progress Note ---
DATE: 05/16/2020 CHIEF COMPLAINT/HISTORY OF PRESENT ILLNESS: This is a 54-year-old black man, whose primary treating diagnosis is sepsis secondary to Pseudomonas aeruginosa and Klebsiella pneumoniae. The patient also has ESBL Klebsiella pneumoniae bacteremia. The patient is only worsening clinically. Today's white blood cell count 12,200 with 75% segmenters. Hemoglobin is 8.1 g/dL. Platelet count 76,000. The patient's BUN and creatinine are 21 and 1.1 respectively. Serum albumin is 1 g/dL. Chest film performed today reveals unchanged multifocal bilateral opacities as well as persistent moderate right and small left pleural effusions. The patient is still on intravenous norepinephrine for blood pressure support. REVIEW OF SYSTEMS: As per HPI. PHYSICAL EXAMINATION: GENERAL: He is in a persistent vegetative state. He does not follow commands. He is on a ventilator via tracheostomy tube, AC mode. VITAL SIGNS: Blood pressure is 112/66, pulse 102, respiratory rate is 34, oxygen saturation 100% on FiO2 of 50%, temperature got as high as 100.8, at 4 o'clock this morning, currently it is 98.4, height is 5 feet10 inches, weight is 136 pounds, BMI 19. INTEGUMENT: Skin is warm and dry. The patient has numerous decubitus ulcers. HEENT: No obvious facial drooping. Moist mucous membranes. NECK: Supple. He has a tracheostomy tube in place connected to a ventilator. CARDIOVASCULAR: Tachycardic. Regular rate and rhythm. LUNGS: Crackles and rhonchi bilaterally. ABDOMEN: Soft. He has G-tube in place, which is functional. EXTREMITIES: He has muscle wasting and numerous decubitus ulcers as previously stated that include, but are not limited to bilateral shoulders, elbows, back, sacral, and buttock area. NEUROLOGIC: He is in persistent vegetative state. He does not respond to stimuli. EXTREMITIES: All four extremities are contracted. DIAGNOSES: 1. Sepsis secondary to Klebsiella pneumoniae extended-spectrum beta-lactamase bacteremia. 2. Klebsiella pneumoniae and Pseudomonas aeruginosa pneumonia. 3. Persistent vegetative state. 4. Acute on chronic respiratory failure. 5. Ventilator dependence. 6. Severe protein-calorie malnutrition. 7. Numerous decubitus ulcers. 8. Acute on chronic diastolic heart failure. PLAN: 1. Extremely poor prognosis. 2. Continue intravenous vancomycin and meropenem. 3. Continue wound care to the patient's numerous decubitus ulcers. 4. Ventilator management as per job placement specialist. 5. Hospice referral would be appropriate. 6. Futility of medical care has been achieved. I spent 25 minutes in the care of this intensive care unit patient. MD AMX Dewey/ISABELLE /[id number] MTDD
[2020-05-16] MEDS: VANCOMYCIN 1GM/NS 250 ML 250 ML IV SCH (13:43)
--- NOTE | 2020-05-16 15:12 | Progress Note ---
DATE: 05/16/2020 SUBJECTIVE: Mr. Aramis Chavez is noncommunicative, alert. His running fever 100.8, heart rate 112, respiration 41, and blood pressure 116/75. LABORATORY DATA: His white count 12.28, hemoglobin 8.1. Sodium 138, potassium 3.6, creatinine 1.1. His sputum culture showed Pseudomonas aeruginosa. MEDICATION LIST: He is currently on: 1. Ativan. 2. Cordarone. 3. Keppra. 4. Protonix. 5. Dakin's Soin. 6. Vancomycin. 7. Meropenem. PHYSICAL EXAMINATION: GENERAL: As mentioned above. He is noncommunicative. VITAL SIGNS: Stable. HEENT: Not icteric. NECK: Supple. CHEST: Clear. EXTREMITIES: Legs with edema. There is erythema noted in the thigh with edema with early ulceration. He is contracted with pressure. IMPRESSION: 1. Prognosis is extremely poor. The patient is septic, is not responding to current choice of antibiotic. We will add vancomycin 1 g q.24 hours. 2. Aspiration pneumonia. 3. resistant. 4. PEG tube placement. 5. Seizure disorder. 6. Unrealistic family expectation. 7. Severe protein malnutrition. 8. Multiple pressure ulcers. MD RACHEL Naik/MODL /[id number]
[2020-05-16] MEDS: FENTANYL 2000MCG/NS 250 250 ML IV PRN (17:35)
[2020-05-17] VITALS (23 sets, daily range): BP systolic 80–131; BP diastolic 41–78
[2020-05-17] MEDS: LORAZEPAM 0.5 MG TAB PO PRN (04:30)
[2020-05-17 05:28] LABS: BASOPHILS # (AUTO) 0.1 (0.0-0.1); BASOPHILS % 0.3 % (0.0-1.0); EOSINOPHILS # (AUTO) 0.3 (0.0-0.4); EOSINOPHILS % 1.6 % (0.0-6.0); HEMATOCRIT 25.2 % (38.2-49.6); HEMOGLOBIN 7.9 g/dL (14.0-18.0); LYMPHOCYTES # (AUTO) 1.8 (1.0-3.2); LYMPHOCYTES % 9.8 % (18.0-39.1); MEAN CORPUSCULAR HGB CONC 31.3 g/dL (31-35); MEAN CORPUSCULAR VOLUME 82.9 fL (81-99); MONOCYTES % 5.4 % (4.4-11.3); NEUTROPHILS # (AUTO) 14.8 (2.1-6.9); NEUTROPHILS % 82.2 % (38.7-80.0); PLATELET COUNT 113 x10e3/uL (140-360); RED BLOOD COUNT 3.04 x10e6/uL (4.3-5.7); RED CELL DISTRIBUTION WIDTH 27.6 % (11.7-14.4)
[2020-05-17 05:40] LABS: ALANINE AMINOTRANSFERASE 8 IU/L (0-55); ALBUMIN 1.9 g/dL (3.5-5.0); ALBUMIN/GLOBULIN RATIO 0.5 (0.8-2.0); ALKALINE PHOSPHATASE 66 IU/L (40-150); ANION GAP 8.1 mmol/L (8-16); BLOOD UREA NITROGEN 18 mg/dL (7-26); BUN/CREATININE RATIO 16 (6-25); CALCIUM 12.6 mg/dL (8.4-10.2); CARBON DIOXIDE 27 mmol/L (22-29); CHLORIDE 106 mmol/L (98-107); EST GLOMERULAR FILTRATION RATE > 60 ML/MIN (60-); GLUCOSE 77 mg/dL (74-118); POTASSIUM 3.1 mmol/L (3.5-5.1); SODIUM 138 mmol/L (136-145)
[2020-05-17] MEDS: MEROPENEM 500MG/ NS 50ML 50 ML IV SCH ×3 (05:55→17:34)
[2020-05-17] MEDS: METOCLOPRAMIDE HCL 10 MG/2ML VIAL IV SCH ×3 (05:55→17:34)
[2020-05-17] MEDS: LEVOTHYROXINE SODIUM 100 MCG TAB PO SCH (05:56)
[2020-05-17] MEDS: VANCOMYCIN 250MG/5ML ORAL SOLN PEG SCH ×3 (05:56→17:34)
[2020-05-17] MEDS: ALBUMIN 25% 25GM 100ML 100 ML IV SCH ×4 (06:50→17:34)
--- NOTE | 2020-05-17 07:38 | Diagnostic Imaging Report ---
EXAMINATION: CHEST SINGLE (PORTABLE) INDICATION: HDP COMPARISON: 05/16/2020 chest x-ray FINDINGS: AP view TUBES and LINES: Stable right upper extremity PICC and tracheostomy tube. LUNGS: Lungs are well inflated. Persistent diffuse bilateral alveolar and reticular opacities. PLEURA: Unchanged moderate right pleural effusion and a small left pleural effusion. No pneumothorax. HEART AND MEDIASTINUM: The cardiomediastinal silhouette is enlarged.. Coronary stent. BONES AND SOFT TISSUES: No acute osseous lesion. Soft tissues are unremarkable. UPPER ABDOMEN: No free air under the diaphragm. IMPRESSION: Persistent diffuse bilateral multifocal pneumonia with superimposed ARDS and moderate right/small left pleural effusions. Cardiomegaly with coronary stent. Signed by: Reg Arreola DO on 05/17/2020 7:35 AM
[2020-05-17] MEDS: AMIODARONE HCL 200 MG TAB PEG SCH ×2 (08:49→17:34)
[2020-05-17] MEDS: LEVETIRACETAM 500 MG TAB PO SCH ×2 (08:49→17:34)
[2020-05-17] MEDS: VASOPRESSIN 60 UNIT in DEXTROSE 5% 50ML 57 ML IV SCH (08:49)
[2020-05-17] MEDS: PANTOPRAZOLE SOD 40 MG TABEC PO SCH (08:49)
[2020-05-17] MEDS: THIAMINE HCL INJ 100 MG/ML 2ML VIAL IV SCH (08:49)
[2020-05-17] MEDS: FERROUS SULFATE 300 MG/5 ML LIQD PEG SCH (08:49)
[2020-05-17] MEDS: SODIUM HYPOCHLORITE 0.25% 480 ML SOLN IR SCH (08:49)
[2020-05-17] MEDS: NOREPINEPHRINE 8 MG/D5W 250 ML 250 ML IV PRN ×2 (10:48→17:34)
--- NOTE | 2020-05-17 11:00 | NUR ---
called pt's cousin, Jaimie Nam ([phone]), to provided emotional/spiritual support. Pt's cousin states "he got sick in August" and she hasn't been able to see him since last November. Pt's cousin states she "believes in God" and "he lived a good life." Pt's cousin states pt identifies as Church. Pt's cousin expressed appreciation for call. Will follow as able. [facility] Spiritual Care Department O: [phone]
[2020-05-17] MEDS: VANCOMYCIN 1GM/NS 250 ML 250 ML IV SCH (11:41)
[2020-05-17] MEDS: FENTANYL 2000MCG/NS 250 250 ML IV PRN (12:17)
[2020-05-17] MEDS ORDERED: POTASSIUM CHLORIDE 20MEQ/15ML UDC PO ONE ×2 (13:30→15:30)
[2020-05-17] MEDS ORDERED: KCL 20 MEQ PACKET/ ORAL SOLN PO SCH ×2 (13:30→15:30)
--- NOTE | 2020-05-17 18:38 | Progress Note ---
DATE: SUBJECTIVE: Mr. Chavez remains extremely poor shape in the intensive care unit. Noncommunicative. There is no fever. OBJECTIVE: HEENT: Normocephalic. NECK: Supple. CHEST: Few crackles. HEART: S1 and S2. ABDOMEN: Soft. The patient is cachectic, contracted. I think he needs to be comfort care, but the family with unrealistic expectation. IMPRESSION: Sepsis, pneumonia healthcare-associated, aspiration, vegetative state, severe protein malnutrition. Continue with antibiotic as ordered. He is currently on vancomycin and meropenem. He also has history of Clostridium difficile so we will give him oral vancomycin. We will discontinue IV vancomycin. Continue with meropenem. Prognosis is extremely poor. He has some cellulitis changes on the lower extremities because of the pressure and contraction. Prognosis as mentioned above extremely poor. MD RACHEL Naik/MODL /[id number]
--- NOTE | 2020-05-17 21:19 | Progress Note ---
DATE: SUBJECTIVE: The patient is on mechanical ventilator. Mental status has slightly improved. Overall, not able to communicate. He is ventilator dependent. PHYSICAL EXAMINATION: VITAL SIGNS: Temperature 98.8, pulse of 94, blood pressure 115/69. He has a Shiley #6 tracheostomy. CHEST: Crackles bilaterally contracted. PEG tube. ABDOMEN: Soft. No pedal edema. Multiple decubitus wound. LAB[place]ATORY DATA: [place] [address], hemoglobin 7.9, platelets 113. Chemistry reviewed. The patient is C diff positive on 05/11. COVID is negative. Sputum cultures growing Pseudomonas and ESBL Klebsiella. Chest x-ray is persistent diffuse multifocal pneumonia. ASSESSMENT AND PLAN: Mr. Chavez is a 54-year-old male, who is bed-bound contracted, tracheostomy, vent dependent, noncommunicative. Continue currently the patient on Levophed. The patient is in septic shock with C diff colitis. ID is following the patient on antibiotic as well. Overall prognosis is extremely poor. The patient's family wants full measures. MD ELVER Charles/ISABELLE /[id number]
[2020-05-18] VITALS (23 sets, daily range): BP systolic 96–116; BP diastolic 57–78
[2020-05-18] MEDS: MEROPENEM 500MG/ NS 50ML 50 ML IV SCH ×5 (06:36→23:22)
[2020-05-18] MEDS: LEVOTHYROXINE SODIUM 100 MCG TAB PO SCH (06:36)
[2020-05-18] MEDS: METOCLOPRAMIDE HCL 10 MG/2ML VIAL IV SCH ×5 (06:36→23:22)
[2020-05-18] MEDS: VANCOMYCIN 250MG/5ML ORAL SOLN PEG SCH ×5 (06:36→23:22)
[2020-05-18] MEDS: FENTANYL 2000MCG/NS 250 250 ML IV PRN (06:40)
[2020-05-18] MEDS: NOREPINEPHRINE 8 MG/D5W 250 ML 250 ML IV PRN (06:41)
[2020-05-18] MEDS: SODIUM HYPOCHLORITE 0.25% 480 ML SOLN IR SCH (09:05)
[2020-05-18] MEDS: LEVETIRACETAM 500 MG TAB PO SCH ×2 (09:05→17:41)
[2020-05-18] MEDS: PANTOPRAZOLE SOD 40 MG TABEC PO SCH (09:05)
[2020-05-18] MEDS: FERROUS SULFATE 300 MG/5 ML LIQD PEG SCH (09:05)
[2020-05-18] MEDS: AMIODARONE HCL 200 MG TAB PEG SCH ×2 (09:05→17:41)
[2020-05-18] MEDS: THIAMINE HCL INJ 100 MG/ML 2ML VIAL IV SCH (09:05)
[2020-05-18] MEDS: VASOPRESSIN 60 UNIT in DEXTROSE 5% 50ML 57 ML IV SCH ×2 (11:30→20:33)
[2020-05-18] MEDS: VANCOMYCIN 1GM/NS 250 ML 250 ML IV SCH (13:22)
--- NOTE | 2020-05-18 14:23 | NUR ---
Nutrition Intervention Note RD Recommendation(s) for Physician: - Recommend modifying formula to Vital AF at 20 ml/hr, when hemodynamically stable advance as tolerated to goal rate of 70 ml/hr (to provide 2016 kcal and 126 gm protein) to better meet needs. - If unable to advance TF to goal rate soon, consider TPN to meet needs- consult Nutrition for recommendations. - Water flushes and fluid management per MD. - Please give Ismael 1 packet BID per PEG to promote wound healing. - Recommend Vitamin C 500 mg BID and Zinc Sulfate 220 mg/day to promote wound healing. Pt meets criteria for moderate protein calorie malnutrition Plan of Care: RD following, monitoring for tolerance and adequacy. TF, MVI, and supplement rec's. Nutrition reason for involvement: follow up RD Assessment 05/18: Follow up. Pt remains on vent via trach. Pt discussed during MDR. Pt now tolerating TF at 30 ml/hr, RD rec's discussed with RN on unit. No recent high residuals. Pt currently on high dose Levophed. Per chart pt with septic shock and C. diff. Chart reviewed. Current rec's remain appropriate. 05/15: Follow up. Chart reviewed. RN stated pt TF is currently on hold since pt had vomited last night and had a residual of 900 mL this morning. Pt was previously receiving TF @ 40 mL/her per documentation. Recommend resuming TF when appropriate. Tube feed formula change recommendation was provided to RN. Will continue to monitor. 05/12: 54 YOM admitted for aspiration pneumonia, seen today per TF on admit. Pt transferred from ER to ICU now. Pt chronic trach and PEG, currently on vent and receiving TF at 40 ml/hr. Pt on high Levophed currently. No prior admits per chart, unable to obtain wt or TF hx currently. Pt with multiple wounds on admit per MD notes. Awaiting wound care consult. TF and supplement rec's provided and placed in chart. Chart reviewed. Will continue to monitor. Principal Problems/Diagnoses: aspiration pneumonia, hypoglycemia PMH: organic brain syndrome, CVA, persistent vegetative state, bipolar, HTN, multiple wounds, contractures GI: last BM 05/17, +PEG Skin: Per MD note- L ankle stage IV, R foot necrotic, unstagable, L groin stage IV, R inner thigh stage III, PEG site loose + drainage, sacral area stage IV, L hip stage IV, wounds to upper back Labs: 10/5: Na 138, K 3.1, BUN 18, Cr 1.1, Gluc 77, POC Gluc 80-91, Ca 12.6 05/15: Na 135, K 3.9, BUN 22, Cr 1.04, Glu 153, Ca 10.8 05/12: Na 142, K 4.2, BUN 26, Cr 1.12, Gluc 61 Meds: protonix, feosol, thiamine, reglan, abx, synthroid IVF/Drips: Levophed at 22 mcg/min, Fentanyl drip Ht: 70 in Wt: 144.06 (05/18) 144 lbs (05/15) 153.19 lb (05/12) Suspect possible weight error BMI: 22 kg/m2 (using wt of 153.19 lbs) IBW: 166 lb Malnutrition Evaluation (05/12/20) The patient meets criteria for MODERATE protein-calorie malnutrition. Energy intake: CHRISTIANNE, pt non-verbal and TF dependent Weight loss: CHRISTIANNE, no prior admit wt available Fat loss: moderate, very little skinfold thickness Muscle loss: moderate, temporal wasting, clavicle some protrusion Supporting Evidence: Fluid accumulation: none observed Functional Status: poor functional status at baseline Nutrition Prescription (Diet Order): Osmolite 1.2, advance to goal rate of 60 ml/hr. TF at 30 ml/hr (864 kcal and 54 gm protein) Estimated Nutritional Needs: 6012-1543 calories/day (28-32 kcal/kg CBW) Weight: 153.19 lbs 84-139 g protein/day (1.2-2 g pro/kg CBW) Weight: 153.19 lbs Diet Adequacy: Not meeting calorie needs, Not meeting protein needs Diet Tolerance: tolerance varies- one episode of high residuals Diet Education Needs Assessment: Diet education not indicated, patient TF dependent. Nutrition Care Level: high- multiple wounds, high dose pressor requirement, TF not meeting needs Nutrition Diagnosis: Increased energy and protein needs related to skin integrity as evidenced by multiple wounds present on admit. Goal: Patient will meet 75-100% of estimated needs by follow up Progress: goal not met Interventions: - Composition, Rate, Route, Recommended Modifications, Multivitamin/mineral supplement therapy, Collaboration with other providers, Ismael Monitoring/Evaluation: - Total energy intake, Total protein intake, Formula/Solution, Prescription medication Signed: Kate Diez RD, LD, CNSC
--- NOTE | 2020-05-18 14:42 | NUR ---
INFECTIOUS DISEASE CONSULT NOTE DR. SUHAS WOODY CC: Bacteremia and PNA, CDIFF HPI: 54-year-old male, well known to me from previous admission and [facility]. The patient is in persistent vegetative state with chronic respiratory failure. He is vent-dependent, has multiple decubitus ulcer, anemia, has been at [facility] in the past and then remained in ICU. Currently, came in with worsening shortness of breath and the patient's chest x-ray is showing evidence of bilateral airspace opacities with pneumonia. The patient is tachypneic on mechanical ventilator. History obtained from the chart PMH: vegetative state, HTN, multiple infections PAST SURGICAL:Trach, PEG SOCIAL: unknown FAMILY: unknown, nursing hoome ROS: unable to obtain due to vegetative state ALL 14 POINT ROS NEG UNLESS OTHERWISE NOTED LABS: reviewed RADIOLOGY: reviewed PHYSICAL EXAM GENERAL: vent dependent, critically ill HEENT: normocephalic, atraumatic CV: s1, s2, no s3, s4 CHEST: diminished, rhonchi ABD: PEG, soft, non-tender EXT: contractures, multiple wounds NEURO: unable to assess IMPRESSION: Bacteremia Chronic wounds Chronic hypoxic respiratory failure with vent dependence and trach HAP CDIFF Sepsis with septic shock present on admission PLAN: Merrem, oral vancomycin, and oral Flagyl overall prognosis is very poor unrealistic expectations from the family Marianela Marin MSN, MICROSCOPIST, [facility]- Suhas Woody M.D.
--- NOTE | 2020-05-18 19:00 | NUR ---
Report received from Mackenzie LINDSAY. Residual 30ml of TF at this time.
[2020-05-18] MEDS ORDERED: VASOPRESSIN 60 UNIT in DEXTROSE 5% 50ML 57 ML IV PRN (20:00)
--- NOTE | 2020-05-18 20:10 | Progress Note ---
DATE: SUBJECTIVE: The patient's mental status is unchanged. He is unresponsive, vent dependent. PHYSICAL EXAMINATION: VITAL SIGNS: Temperature 97.8, pulse of 75, blood pressure 113/75. The patient is on mechanical ventilator, FiO2 of 50%. LABORATORY DATA: White count of 17,000, hemoglobin 7.9, platelets 113. Chemistry reviewed. The repeat blood cultures so far negative. Initial blood culture grew out Klebsiella pneumoniae ESBL. ASSESSMENT/PLAN: Mr. Chavez is a 54-year-old male. He is noncommunicative, bed-bound, has tracheostomy feeding tube and he is vent dependent. He is in septic shock. CURRENT PROBLEMS: 1. Septic shock secondary to Klebsiella ESBL. 2. Pneumonia. 3. Persistent vegetative state. 4. Acute on chronic hypoxic respiratory failure. 5. Ventilator dependence. 6. Contractures. 7. Protein calorie malnutrition. 8. Multiple decubitus ulcers. 9. Bed-bound status. PLAN: 1. Continue the patient on Levophed to keep the map more than or equal to 65. I will add vasopressin. The patient is on broad-spectrum antibiotic per ID recommendation. 2. Continue the patient on tube feeding. Overall, prognosis is extremely. It is highly recommended the patient should be comfort care and hospice. However, the family is not in agreement. MD ELVER Charles/ISABELLE /[id number]
[2020-05-18] MEDS ORDERED: SODIUM CHLORIDE 0.9% 250ML 250 ML ONE (23:23)
[2020-05-19] VITALS (24 sets, daily range): BP systolic 82–108; BP diastolic 51–76
--- NOTE | 2020-05-19 02:25 | NUR ---
present and assessing the pt. New orders for STAT KUB for possible ileus, Enrique in radiology called and notified at this time.
--- NOTE | 2020-05-19 03:30 | NUR ---
Called radiology to check on STAT KUB results, spoke with Enrique and he said he will check on the results.
--- NOTE | 2020-05-19 04:20 | NUR ---
Enrique with radiology says he just spoke with the radiologist and he is reading the KUB "right now".
--- NOTE | 2020-05-19 04:31 | Diagnostic Imaging Report ---
EXAM: Abdomen Radiograph 1 View(s) INDICATION: abd distension COMPARISON: Previous abdominal radiograph dated 05/16/2020. FINDINGS: Interval resolution of previously seen dilated small bowel loop in the midabdomen. A few foci of gas in the left hemiabdomen, likely within the descending colon. Vertically oriented loop projecting over the lower abdomen and pelvis favored to represent nondilated sigmoid colon. Paucity of bowel gas limits evaluation. Bilateral airspace opacities and pleural effusions are partially imaged. IMPRESSION: Interval resolution of previously seen dilated small bowel loop in the midabdomen. Paucity of bowel gas limits evaluation. Nonspecific bowel gas pattern. Consider contrast-enhanced CT of the abdomen and pelvis if clinical concern for obstruction persists. Signed by: Rashaun Jarrett MD on 05/19/2020 4:27 AM
[2020-05-19 04:54] LABS: BASOPHILS # (AUTO) 0.2 (0.0-0.1); BASOPHILS % 0.9 % (0.0-1.0); EOSINOPHILS # (AUTO) 0.3 (0.0-0.4); EOSINOPHILS % 1.4 % (0.0-6.0); HEMATOCRIT 23.9 % (38.2-49.6); HEMOGLOBIN 7.5 g/dL (14.0-18.0); LYMPHOCYTES # (AUTO) 1.9 (1.0-3.2); LYMPHOCYTES % 9.9 % (18.0-39.1); MEAN CORPUSCULAR HEMOGLOBIN 26.7 pg (28-32); MEAN CORPUSCULAR HGB CONC 31.4 g/dL (31-35); MEAN CORPUSCULAR VOLUME 85.1 fL (81-99); MONOCYTES % 5.3 % (4.4-11.3); NEUTROPHILS # (AUTO) 15.4 (2.1-6.9); NEUTROPHILS % 81.2 % (38.7-80.0); PLATELET COUNT 186 x10e3/uL (140-360); RED BLOOD COUNT 2.81 x10e6/uL (4.3-5.7); RED CELL DISTRIBUTION WIDTH 27.8 % (11.7-14.4)
[2020-05-19 05:11] LABS: ALANINE AMINOTRANSFERASE 6 IU/L (0-55); ALBUMIN 1.6 g/dL (3.5-5.0); ALBUMIN/GLOBULIN RATIO 0.4 (0.8-2.0); ALKALINE PHOSPHATASE 131 IU/L (40-150); ANION GAP 8.6 mmol/L (8-16); BLOOD UREA NITROGEN 17 mg/dL (7-26); BUN/CREATININE RATIO 16 (6-25); CALCIUM 10.4 mg/dL (8.4-10.2); CARBON DIOXIDE 25 mmol/L (22-29); CHLORIDE 107 mmol/L (98-107); CREATININE, SERUM 1.06 mg/dL (0.72-1.25); EST GLOMERULAR FILTRATION RATE > 60 ML/MIN (60-); GLUCOSE 90 mg/dL (74-118); POTASSIUM 3.6 mmol/L (3.5-5.1); SODIUM 137 mmol/L (136-145)
[2020-05-19] MEDS: MEROPENEM 500MG/ NS 50ML 50 ML IV SCH ×3 (05:28→18:01)
[2020-05-19] MEDS: METOCLOPRAMIDE HCL 10 MG/2ML VIAL IV SCH ×3 (05:28→18:01)
[2020-05-19] MEDS: LEVOTHYROXINE SODIUM 100 MCG TAB PO SCH (05:28)
[2020-05-19] MEDS: NOREPINEPHRINE 8 MG/D5W 250 ML 250 ML IV PRN (05:29)
[2020-05-19] MEDS: VANCOMYCIN 250MG/5ML ORAL SOLN PO SCH ×3 (05:29→18:01)
[2020-05-19] MEDS: FENTANYL 2000MCG/NS 250 250 ML IV PRN ×3 (05:30→20:06)
[2020-05-19 07:48] LABS: ANISOCYTOSIS MARKED; LYMPHOCYTES % (MANUAL) 8 % (19-48); MONOCYTES % (MANUAL) 3 % (3.4-9.0); NEUTROPHILS % (MANUAL) 88 % (40-74); NUCLEATED RED BLOOD CELLS 1
[2020-05-19 07:49] LABS: SCHISTOCYTES RARE
[2020-05-19 07:50] LABS: HELMET CELLS RARE; TARGET CELLS FEW
[2020-05-19 07:51] LABS: HYPOCHROMASIA MODERATE; PLATELET ESTIMATE ADEQUATE; RBC MORPHOLOGY COMMENT ABNORMAL
[2020-05-19 07:52] LABS: PLATELET MORPHOLOGY COMMENT RARE EDTA CLUMPING
[2020-05-19] MEDS: SODIUM HYPOCHLORITE 0.25% 480 ML SOLN IR SCH (08:07)
[2020-05-19] MEDS: FERROUS SULFATE 300 MG/5 ML LIQD PEG SCH (08:07)
[2020-05-19] MEDS: PANTOPRAZOLE SOD 40 MG TABEC PO SCH (08:07)
[2020-05-19] MEDS: THIAMINE HCL INJ 100 MG/ML 2ML VIAL IV SCH (08:07)
[2020-05-19] MEDS: AMIODARONE HCL 200 MG TAB PEG SCH ×2 (08:07→16:30)
[2020-05-19] MEDS: LEVETIRACETAM 500 MG TAB PO SCH (08:07)
--- NOTE | 2020-05-19 10:53 | Progress Note ---
DATE: 05/19/2020 SUBJECTIVE: Scott Self is a 54-year-old male, who was referred to me for pancytopenia. The patient's hemoglobin today is still 7.5. The patient is leukemoid today with a white count of 19,100. Platelets have gone up to 186,000. Microbiology reveals the patient to have blood cultures positive for Klebsiella since 05/09. The sputum culture had grown Pseudomonas and Klebsiella. The patient is on IV antibiotics. I have confine myself to Hematology only. The patient's calcium was high. After Aredia, the calcium has been repeated, still slightly high at 10.4. Total protein is remained extremely low at 5.5, albumin low at 1.6, and globulin is high at 3.9. Quantitation of immunoglobulins has been done. The IgG is high at 1802, IgA 364, IgM low at 51, highly suggestive of myeloma. However, of academic interest, I will not treat this patient with multiple comorbidities, but I will confine myself to Hematology. MD BOB Harkins/ISABELLE /[id number]
--- NOTE | 2020-05-19 11:05 | NUR ---
Forest Manager called pt's cousin, Jaimie Nma, to follow up. Pt's cousin states she last saw him last December and is planning to visit "this Sunday (05/22/20)" along with one of his aunts. Pt's cousin states he has a son but he "doesn't want to participate" his father's life. Concerning the pt's code status, the cousin states, "we never talked about it and I won't consent to changing his code status." Forest Manager provided empathic listening and facilitated conversation about code status. Provided prayer and reminded pt's cousin of availability of terrazzo worker helper services. Pt's cousin expressed appreciation for support. Followed up w/ RN and SW. Will continue to follow as able. [facility] Spiritual [facility] Department O: [phone]
[2020-05-19] MEDS: VANCOMYCIN 1GM/NS 250 ML 250 ML IV SCH (11:12)
[2020-05-19] MEDS: MIDODRINE HCL 5 MG TABLET PO SCH ×2 (11:12→16:30)
--- NOTE | 2020-05-19 16:02 | NUR ---
INFECTIOUS DISEASE CONSULT NOTE DR. SUHAS WOODY CC: Bacteremia and PNA, CDIFF HPI: 54-year-old male, well known to me from previous admission and [facility]. The patient is in persistent vegetative state with chronic respiratory failure. He is vent-dependent, has multiple decubitus ulcer, anemia , has been at [facility] in the past and then remained in ICU. Currently, came in with worsening shortness of breath and the patient's chest x-ray is showing evidence of bilateral airspace opacities with pneumonia. The patient is tachypneic on mechanical ventilator. History obtained from the chart PMH: vegetative state, HTN, multiple infections PAST SURGICAL:Trach, PEG SOCIAL: unknown FAMILY: unknown, nursing hoome ROS: unable to obtain due to vegetative state ALL 14 POINT ROS NEG UNLESS OTHERWISE NOTED LABS: reviewed RADIOLOGY: reviewed PHYSICAL EXAM GENERAL: vent dependent, critically ill HEENT: normocephalic, atraumatic CV: s1, s2, no s3, s4 CHEST: diminished, rhonchi ABD: PEG, soft, non-tender EXT: contractures, multiple wounds NEURO: unable to assess IMPRESSION: Bacteremia Chronic wounds Chronic hypoxic respiratory failure with vent dependence and trach HAP CDIFF Sepsis with septic shock present on admission PLAN: Merrem, oral vancomycin, and oral Flagyl overall prognosis is very poor unrealistic expectations from the family repeat blood cultures negative Marianela Marin MSN, ARTIFICIAL LIMB FITTER, [facility]- Suhas Woody M.D.
[2020-05-19] MEDS: LEVETIRACETAM ORAL SOLUTION 500 MG/5 ML SOLN PEG SCH (16:31)
--- NOTE | 2020-05-19 18:37 | NUR ---
Patient weaned off of levophed drip and on vasopressin drip during shift. Wound care done to wounds.
--- NOTE | 2020-05-19 20:00 | Progress Note ---
DATE: SUBJECTIVE: The patient is still on vasopressors, persistent vegetative state, has a trach and a PEG. I will start the patient on vasopressin added to the Levophed as the patient remained hypotensive. PHYSICAL EXAMINATION: VITAL SIGNS: Temperature 96.3, pulse of 72, blood pressure 88/62, tracheostomy. CHEST: Clear. The patient is vent dependent. LABORATORY DATA: White count of 19,000, hemoglobin 7.5, platelets 186. Chemistry reviewed. ASSESSMENT AND PLAN: Mr. Chavez is a 54-year-old male, who was noncommunicative, bed-bound, vegetative state, vent dependent, has tracheostomy. He is in septic shock. CURRENT PROBLEMS: 1. Septic shock secondary to Klebsiella ESBL pneumonia persist. 2. Pneumonia. 3. Persistent vegetative state. 4. Acute on chronic hypoxic respiratory failure. 5. Ventilator dependence. 6. Contractures. 7. Protein calorie malnutrition. 8. Multiple decubitus ulcer. PLAN: Continue the patient on supportive care, broad-spectrum antibiotic vasopressors as needed to keep the map more than or equal to 65. Extremely poor prognosis considering the patient is ventilator dependent and persistent vegetative state with multiple decubitus ulcers. Critical care time spent 40 minutes. MD ELVER Charles/ISABELLE /[id number]
[2020-05-20] VITALS (56 sets, daily range): BP systolic 84–116; BP diastolic 52–79
[2020-05-20] MEDS: MEROPENEM 500MG/ NS 50ML 50 ML IV SCH ×4 (00:47→17:12)
[2020-05-20] MEDS: VANCOMYCIN 250MG/5ML ORAL SOLN PO SCH ×4 (00:47→17:14)
[2020-05-20] MEDS: METOCLOPRAMIDE HCL 10 MG/2ML VIAL IV SCH ×4 (00:47→17:12)
--- NOTE | 2020-05-20 03:35 | NUR ---
HR dropped to the 50s. Pt noted to be cheynne stoking. Family was called and notified of changes. Charge Nurse notified. Addendum: 05/20/20 at 0346 by Lauryn Benitez RN Error. Disregard above. (Wrong Chart)
[2020-05-20] MEDS: LEVOTHYROXINE SODIUM 100 MCG TAB PO SCH (05:58)
[2020-05-20] MEDS: ALBUMIN 25% 25GM 100ML 0.25 GM/ML BTL IV SCH ×3 (06:27→17:53)
[2020-05-20] MEDS: MIDODRINE HCL 5 MG TABLET PO SCH ×3 (08:05→16:04)
[2020-05-20] MEDS: SODIUM HYPOCHLORITE 0.25% 480 ML SOLN IR SCH (08:05)
[2020-05-20] MEDS: FERROUS SULFATE 300 MG/5 ML LIQD PEG SCH (08:05)
[2020-05-20] MEDS: PANTOPRAZOLE SOD 40 MG TABEC PO SCH (08:05)
[2020-05-20] MEDS: THIAMINE HCL INJ 100 MG/ML 2ML VIAL IV SCH (08:05)
[2020-05-20] MEDS: AMIODARONE HCL 200 MG TAB PEG SCH ×2 (08:05→16:04)
[2020-05-20] MEDS: LEVETIRACETAM ORAL SOLUTION 500 MG/5 ML SOLN PEG SCH ×2 (08:05→16:04)
--- NOTE | 2020-05-20 08:28 | NUR ---
tube feed residual at 50 ml returned. medications given with 120 ml of water. patient turned to right side. flushed rectal tube with 50 ml water. fentanyl drip at 100 mcg/min reduced to 25 mcg/min. Levophed infusing at 3 mcg/min. vasopressin at 0.05 units/min. midodrine per peg started yesterday
[2020-05-20] MEDS: VASOPRESSIN 60 UNIT in DEXTROSE 5% 50ML 57 ML IV SCH (10:26)
--- NOTE | 2020-05-20 11:15 | Progress Note ---
DATE: SUBJECTIVE: The patient is still on mechanical ventilator, vasopressors. OBJECTIVE: VITAL SIGNS: Temperature 97.8, pulse of 78, and blood pressure 93/62. He is on mechanical ventilator, FiO2 40%, tracheostomy. GENERAL: Malnourished. CHEST: Clear. NEUROLOGIC: The patient is noncommunicative, nonresponsive. ABDOMEN: Soft. The patient has PEG tube. EXTREMITIES: Multiple decubitus ulcers and body contractures. LABORATORY DATA: Reviewed. White cell count is 19,000. Chemistry reviewed. ASSESSMENT/PLAN: Mr. Chavez is a 54-year-old male, who presented to the emergency room, who is a [facility] resident. The patient is noncommunicative, bedbound with tracheostomy and PEG, and he is vent-dependent. Current problem: 1. Septic shock due to Klebsiella pneumonia, extended-spectrum beta-lactamase bacteremia. 2. Pneumonia. 3. Vent dependence. 4. Bedbound status. 5. Severe malnutrition. 6. Contractures of the body. 7. Gastrostomy tube. 8. Tracheostomy status. 9. Noncommunicative, persistent vegetative state. PLAN: The patient is on IV antibiotics per ID recommendation. Vasopressors will be continued to keep the MAP more than or equal to 65. Wound Care is evaluating the patient. Overall, the patient's prognosis is extremely poor. Detailed discussion was done with the palliative care nurse. Family has been contacted multiple times. They still want full measures. Overall prognosis is extremely poor. MD ELVER Charles/ISABELLE /[id number]
[2020-05-20] MEDS: LORAZEPAM 0.5 MG TAB PO PRN (11:19)
[2020-05-20] MEDS: VANCOMYCIN 1GM/NS 250 ML 250 ML IV SCH (11:42)
--- NOTE | 2020-05-20 16:04 | NUR ---
Dr. Kim Sanches notified about penile swelling. Consults ordered for Dr. Chi. Dr. Kim Sanches ordered consults for neurology and pastoral consult for ethics committee. Dr. Chi and Dr. Matthews notified of new consults.
--- NOTE | 2020-05-20 16:46 | NUR ---
Nutrition Intervention Note RD Recommendation(s) for Physician: - Continue Vital AF 1.2 and advance as tolerated to goal rate of 70 ml/hr (to provide 2016 kcal and 126 gm protein) to better meet needs. - If unable to advance TF to goal rate soon, consider TPN to meet needs- consult Nutrition for recommendations. - Water flushes and fluid management per MD. - Please give Ismael 1 packet BID per PEG to promote wound healing. - Recommend Vitamin C 500 mg BID and Zinc Sulfate 220 mg/day to promote wound healing. Pt meets criteria for moderate protein calorie malnutrition Plan of Care: RD following, monitoring for tolerance and adequacy. TF, MVI, and supplement rec's. Nutrition reason for involvement: follow up RD Assessment 05/20: Follow up. Pt remains on the ventilator. Nursing note indicates pt is on 3 mcg/min of levophed and 0.05 units/min of vasopressin. RN stated pt is tolerating TF of Vital 1.2 @ 20 mL/hr and no recent high residuals. Pt is also on Reglan. Recommend advancing towards recommended goal rate as appropriate and discussed pt with RN. Current recommendations remain appropriate. Will continue to monitor. 05/18: Follow up. Pt remains on vent via trach. Pt discussed during MDR. Pt now tolerating TF at 30 ml/hr, RD rec's discussed with RN on unit. No recent high residuals. Pt currently on high dose Levophed. Per chart pt with septic shock and C. diff. Chart reviewed. Current rec's remain appropriate. 05/15: Follow up. Chart reviewed. RN stated pt TF is currently on hold since pt had vomited last night and had a residual of 900 mL this morning. Pt was previously receiving TF @ 40 mL/her per documentation. Recommend resuming TF when appropriate. Tube feed formula change recommendation was provided to RN. Will continue to monitor. 05/12: 54 YOM admitted for aspiration pneumonia, seen today per TF on admit. Pt transferred from ER to ICU now. Pt chronic trach and PEG, currently on vent and receiving TF at 40 ml/hr. Pt on high Levophed currently. No prior admits per chart, unable to obtain wt or TF hx currently. Pt with multiple wounds on admit per MD notes. Awaiting wound care consult. TF and supplement rec's provided and placed in chart. Chart reviewed. Will continue to monitor. Principal Problems/Diagnoses: aspiration pneumonia, hypoglycemia PMH: organic brain syndrome, CVA, persistent vegetative state, bipolar, HTN, multiple wounds, contractures GI: last BM 05/19 x 2, +PEG Skin: Per MD note- L ankle stage IV, R foot necrotic, unstagable, L groin stage IV, R inner thigh stage III, PEG site loose + drainage, sacral area stage IV, L hip stage IV, wounds to upper back Labs: 05/19: Na 138, K 3.6, BUN 17, Cr 1.06, Glu 90, Ca 10.4 05/17: Na 138, K 3.1, BUN 18, Cr 1.1, Gluc 77, POC Gluc 80-91, Ca 12.6 05/15: Na 135, K 3.9, BUN 22, Cr 1.04, Glu 153, Ca 10.8 05/12: Na 142, K 4.2, BUN 26, Cr 1.12, Gluc 61 Meds: vancomycin, reglan, antibiotic, vasopressin, protonix, ferrous sulfate, thiamine, fentanyl, Ht: 70 in Wt: 156 lbs (05/19) 144.06 (05/18) 144 lbs (05/15) 153.19 lb (05/12) Suspect possible weight error BMI: 22 kg/m2 (using wt of 153.19 lbs) IBW: 166 lb Malnutrition Evaluation (05/12/20) The patient meets criteria for MODERATE protein-calorie malnutrition. Energy intake: CHRISTIANNE, pt non-verbal and TF dependent Weight loss: CHRISTIANNE, no prior admit wt available Fat loss: moderate, very little skinfold thickness Muscle loss: moderate, temporal wasting, clavicle some protrusion Supporting Evidence: Fluid accumulation: none observed Functional Status: poor functional status at baseline Nutrition Prescription (Diet Order): Vital AF 1.2 @ 20 mL/hr Estimated Nutritional Needs: 1833-6422 calories/day (28-32 kcal/kg CBW) Weight: 153.19 lbs 84-139 g protein/day (1.2-2 g pro/kg CBW) Weight: 153.19 lbs Diet Adequacy: Not meeting calorie needs, Not meeting protein needs Diet Tolerance: tolerating trickle feeds Diet Education Needs Assessment: Diet education not indicated, patient TF dependent. Nutrition Care Level: high- multiple wounds, TF not meeting needs Nutrition Diagnosis: Increased energy and protein needs related to skin integrity as evidenced by multiple wounds present on admit. Goal: Patient will meet 75-100% of estimated needs by follow up Progress: goal not met Interventions: - Composition, Rate, Route, Recommended Modifications, Multivitamin/mineral supplement therapy, Collaboration with other providers, Ismael Monitoring/Evaluation: - Total energy intake, Total protein intake, Formula/Solution, Prescription medication Signed: Herlinda Diaz RD, LD
--- NOTE | 2020-05-20 21:19 | Progress Note ---
DATE: 05/20/2020 SUBJECTIVE: Aramis is a 54-year-old male, who was referred to me for anemia and thrombocytopenia. The patient clinically as far as the Hematology is concerned, he is reasonable. His CBC done on 05/19, showed a hemoglobin of 7.5, hematocrit 23.9, white count of 19,100, and platelets of 186,000. This is an improvement from the lowest platelet count of 26,000 on 05/12/2020, however, because of sepsis. Because of hypercalcemia, I had given him Aredia. The patient's calcium is lower than before at 10.4, however, this is still significant with a very low total protein of 5.5 and extremely low albumin of 1.6, as 70% of the calcium is absolved to the albumin. Because of the renal dysfunction, quantitation of immunoglobulins were done to make sure we are not dealing with myeloma, however, he has monoclonal gammopathy, IgG being 1802, IgA 364, and IgM 51. This is consistent with plasma cell dyscrasia. However, it is of academic interest for me to do a bone marrow, as I will never be able to treat him with all the comorbidities, which he has, but confined with respiratory failure. Palliative Care is being provided as I have been consulted. Blood transfusion if needed will be given again. MD BOB Harkins/ISABELLE /[id number]
[2020-05-21] VITALS (21 sets, daily range): BP systolic 91–121; BP diastolic 57–97
[2020-05-21] MEDS: METOCLOPRAMIDE HCL 10 MG/2ML VIAL IV SCH ×5 (00:17→23:38)
[2020-05-21] MEDS: ALBUMIN 25% 25GM 100ML 0.25 GM/ML BTL IV SCH ×4 (00:17→17:02)
--- NOTE | 2020-05-21 02:59 | Progress Note ---
DATE: 05/20/2020 SUBJECTIVE: remains on the ventilator, noncommunicative. OBJECTIVE: VITAL SIGNS: Temperature 97.8, heart rate 78, blood pressure 93/62, FiO2 of 40%. HEENT: Not icteric. Tracheostomy CHEST: Few rhonchi. HEART: S1, S2. ABDOMEN: Soft. Bowel sounds present. He has a PEG tube. EXTREMITIES: Contraction. SKIN: Showed some sign of scattered ischemia, here and there small spots. IMPRESSION: Extremely ill patient with septic shock, vent dependent, bed bound, malnutrition, status post PEG, status post tracheostomy, metabolic encephalopathy. The patient really should be a comfort care. Family is unrealistic. His white count is getting progressively worse at 19.1. His platelet is better. He is anemic. He is currently on oral vancomycin for possibility of Clostridium difficile colitis. I am going to continue his meropenem and vancomycin antibiotic, not responding to current choice of antibiotic. Continue CBC. Prognosis is extremely poor as mentioned above from aspiration pneumonia, healthcare-associated pneumonia seems to be clinically little better. Continue as ordered. MD RACHEL Naik/MODL /[id number]
[2020-05-21] MEDS ORDERED: VASOPRESSIN INJ 20 UNIT/ML VIAL ONE ×3 (03:43)
[2020-05-21] MEDS ORDERED: DEXTROSE 5% 50ML 50 ML IV ONE (03:57)
[2020-05-21 05:16] LABS: BASOPHILS # (AUTO) 0.1 (0.0-0.1); BASOPHILS % 0.5 % (0.0-1.0); EOSINOPHILS # (AUTO) 0.2 (0.0-0.4); LYMPHOCYTES # (AUTO) 1.9 (1.0-3.2); LYMPHOCYTES % 16.3 % (18.0-39.1); MEAN CORPUSCULAR HEMOGLOBIN 25.7 pg (28-32); MEAN CORPUSCULAR HGB CONC 30.3 g/dL (31-35); MEAN CORPUSCULAR VOLUME 84.8 fL (81-99); MONOCYTES # (AUTO) 0.7 (0.2-0.8); MONOCYTES % 6.2 % (4.4-11.3); NEUTROPHILS # (AUTO) 8.7 (2.1-6.9); NEUTROPHILS % 73.6 % (38.7-80.0); PLATELET COUNT 304 x10e3/uL (140-360); RED BLOOD COUNT 2.37 x10e6/uL (4.3-5.7); RED CELL DISTRIBUTION WIDTH 26.6 % (11.7-14.4)
[2020-05-21 05:20] LABS: HEMOGLOBIN 6.1 g/dL (14.0-18.0)
[2020-05-21 05:21] LABS: HEMATOCRIT 20.1 % (38.2-49.6)
[2020-05-21 05:36] LABS: ALANINE AMINOTRANSFERASE < 6 IU/L (0-55); ALBUMIN 2.6 g/dL (3.5-5.0); ALBUMIN/GLOBULIN RATIO 0.7 (0.8-2.0); ALKALINE PHOSPHATASE 57 IU/L (40-150); BLOOD UREA NITROGEN 17 mg/dL (7-26); BUN/CREATININE RATIO 16 (6-25); CARBON DIOXIDE 24 mmol/L (22-29); CHLORIDE 105 mmol/L (98-107); CREATININE, SERUM 1.04 mg/dL (0.72-1.25); EST GLOMERULAR FILTRATION RATE > 60 ML/MIN (60-); GLUCOSE 84 mg/dL (74-118); SODIUM 136 mmol/L (136-145)
--- NOTE | 2020-05-21 05:45 | NUR ---
Bedbath provided to PT. Patient Linen changed. VSS. Will continue to monitor.
[2020-05-21] MEDS: LEVOTHYROXINE SODIUM 100 MCG TAB PO SCH (06:30)
--- NOTE | 2020-05-21 06:30 | NUR ---
Dr Sanches paged Regarding HgB of 6.1 Awaiting call back.
[2020-05-21] MEDS: VASOPRESSIN 60 UNIT in DEXTROSE 5% 50ML 57 ML IV SCH (07:00)
--- NOTE | 2020-05-21 07:10 | NUR ---
Beside Report given to RN. VSS. Safety Maintained.
[2020-05-21] MEDS ORDERED: FUROSEMIDE INJ 10 MG/ML 2 ML VIAL IV PRN (07:45)
[2020-05-21] MEDS ORDERED: SODIUM CHLORIDE 0.9% 250ML 250 ML IV ONE (08:10)
[2020-05-21] MEDS: LEVETIRACETAM ORAL SOLUTION 500 MG/5 ML SOLN PEG SCH ×2 (08:43→17:02)
[2020-05-21] MEDS: FERROUS SULFATE 300 MG/5 ML LIQD PEG SCH (08:43)
[2020-05-21] MEDS: PANTOPRAZOLE SOD 40 MG TABEC PO SCH (08:43)
[2020-05-21] MEDS: AMIODARONE HCL 200 MG TAB PEG SCH ×2 (08:43→09:45)
[2020-05-21] MEDS: THIAMINE HCL INJ 100 MG/ML 2ML VIAL IV SCH (08:43)
[2020-05-21] MEDS: MIDODRINE HCL 5 MG TABLET PO SCH ×3 (08:43→17:02)
[2020-05-21] MEDS: SODIUM HYPOCHLORITE 0.25% 480 ML SOLN IR SCH (09:01)
--- NOTE | 2020-05-21 09:41 | Diagnostic Imaging Report ---
EXAMINATION: CHEST SINGLE (PORTABLE) INDICATION: Pneumonia COMPARISON: Chest are graft and 12/31/2019 FINDINGS: LINES/TUBES:Support lines and tubes unchanged. EKG leads overlie the chest. LUNGS:The lungs are moderately inflated. Unchanged bilateral left greater than right airspace opacities. PLEURA:Moderate right pleural effusion. Small left pleural effusion. No pneumothorax. MEDIASTINUM:The cardiomediastinal silhouette appears unchanged in size and shape. BONES/SOFT TISSUES:No acute osseous injury. ABDOMEN:No free air under the diaphragm. IMPRESSION: No significant interval change. Signed by: Cait Zamora MD on 05/21/2020 9:38 AM
--- NOTE | 2020-05-21 10:10 | Progress Note ---
DATE: 05/21/2020 SUBJECTIVE: Scott Self is a 54-year-old male, referred to me for multitude of problems for detailed consult and progress notes. Please review my old dictations. The patient's hemoglobin yesterday was 7.5, it dropped today to 6.1. The platelets are reasonable at 304. The white count also is reasonable now at 11.8. However, need to remind that this patient has multiple myeloma, also monoclonal IgG. The patient has hypercalcemia. The patient is septic with Klebsiella pneumoniae, also Pseudomonas growing in the sputum. The patient's potassium today is low at 3.0. My discussion with the patient's nurse yesterday was the family still wants full code. The case is being sent to ethics committee. I will confine myself to Hematology. Even though he has myeloma, he is not a candidate for any chemotherapy as his performance status is extremely poor. MD BOB Harkins/ISABELLE /[id number]
--- NOTE | 2020-05-21 10:35 | NUR ---
Emergency Room Specialist called pt's cousin, Jaimie Nam, to follow up with emotional/spiritual support. Pt's cousin states she is still planning on visiting [facility] tomorrow. Emergency Room Specialist provided information concerning his schedule and confirmed follow up early next week. Pt's cousin expressed appreciation for support. Will continue to follow. ANAT Crowell Spiritual Care Department O: [phone]
--- NOTE | 2020-05-21 13:31 | Consultation ---
DATE OF CONSULTATION: Neurology Consultation. REASON FOR CONSULTATION: Consultation is for minimally conscious state, minimal responsiveness, possibly vegetative state in a patient with a chronic neurological injury. HISTORY OF PRESENT ILLNESS: Mr. Chavez is a young man who is 54 years old who is in the ICU and has been here since looks like admission date is 05/09/2020, who presented with septic shock, pneumonia, respiratory failure. He has history of stroke due to vegetative depression and chronic respiratory failure status post tracheostomy and known atrial fibrillation, on Xarelto therapy and he presented with sepsis and bacteremia. I was asked to evaluate his neurocognitive status and to evaluate his minimally conscious state. The patient is in fact minimally conscious comatose. He is not able to give a past medical, social or review of systems history given his clinical status. His exam shows a baseline dysconjugate gaze that can refocus with stimulation. Very diffusely, emaciated gentleman with low temporalis muscle wasted and clavicles prominent, thin ribs are evident on the exam. There is no nuchal rigidity. His trachea is midline. His eyes conjugate when he is stimulated. His pupils are reactive. He has very poor dentition and poor oral care. There is increased muscle tone in arms and legs with some spasticity left side appears more so than right side. Reflexes are brisk. Toes are upgoing bilaterally. Not following commands. ASSESSMENT/PLAN: Aramis Chavez is vegetative state. He has been so appears for prolonged period of time given that he appears quite emaciated in general and chronically ill. I do think that it is worth for initiating neurotropic medications to see if we can get increased responsiveness in the patient. I am going to also attempt to get an EEG and see if there is any evidence of subclinical status epilepticus or any indication of subclinical or clinical minimally conscious state status. MIRANDA MALAGON MD RR/MODL /[id number]
[2020-05-21] MEDS: KCL 20 MEQ PACKET/ ORAL SOLN PO SCH ×3 (14:40→17:03)
[2020-05-21] MEDS: PRAMIPEXOLE DIHYDROCHLORIDE 0.25 MG TAB PO SCH (17:02)
[2020-05-21] MEDS ORDERED: SODIUM CHLORIDE 0.9% 250ML 250 ML ONE (17:20)
--- NOTE | 2020-05-21 18:28 | Progress Note ---
DATE: SUBJECTIVE: Mr. Chavez remains in intensive care unit, noncommunicative. OBJECTIVE: VITAL SIGNS: Stable, afebrile. HEENT: He is not icteric. NECK: Supple. CHEST: Crackles. HEART: S1 and S2. ABDOMEN: Soft. The patient has been seen by Hematology/Oncology. He has been seen by Neurology. The patient, who is in vegetative state, malnutrition. LABORATORY DATA: His blood cultures, no growth. Sputum showed Pseudomonas aeruginosa. Blood cultures, Klebsiella pneumoniae ESBL. White count 11.8 and hemoglobin 6.1. Sodium 133 and potassium 3. IMPRESSION: 1. Sepsis, on admission. The patient, who is currently on meropenem to finish 14 days. The patient has positive blood cultures on . We will continue meropenem for 2 more days. Prognosis remains poor. 2. Vegetative state. 3. Anemia. 4. Prognosis is extremely poor. Family with unrealistic expectation. I think the patient is a candidate for hospice. 5. Aspiration pneumonia, recurrent colonization multidrug-resistant. 6. We will follow. MD RACHEL Naik/ISABELLE /[id number]
[2020-05-21] MEDS: MEROPENEM 1GM 100 ML IV SCH (22:00)
[2020-05-22] VITALS (25 sets, daily range): BP systolic 104–141; BP diastolic 70–100
--- NOTE | 2020-05-22 02:40 | Consultation ---
DATE OF CONSULTATION: 05/21/2020 Urology Consultation REASON FOR CONSULTATION: Penile edema. HISTORY OF PRESENT ILLNESS: Aramis Chavez is an unfortunate and debilitated 54-year-old man, who cannot provide us a history. All information is obtained from discussion with the nurses and review of the patient's chart. The patient has a tracheostomy tube and he is bedridden. He has decubiti. He needs a Church catheter to divert the urine. He also has incontinence due to debility as well as potentially due to intracranial process resulting in a neurogenic bladder. The patient, therefore, was managed with a chronic Church catheter. There was penile edema noted. Urological consultation was sought. There has not been any hematuria at the present time. PAST MEDICAL AND SURGICAL HISTORY: 1. Status post PEG tube placement. 2. Tracheostomy. 3. Epilepsy. 4. Dysphagia. 5. Malnutrition. 6. History of GI hemorrhage. 7. History of cerebral infarction. 8. Acute on chronic respiratory failure. 9. Decubiti. ALLERGIES: NONE KNOWN. CURRENT MEDICATIONS: Please refer to the MAR. FAMILY HISTORY: Noncontributory to the active urological problems. REVIEW OF SYSTEMS: Believed to be consistent with above history of present illness, past medical history, is otherwise believed to be negative for all systems. The purpose of admission was to treat aspiration pneumonia. PHYSICAL EXAMINATION: GENERAL: Debilitated man, in the ICU, lying in bed, currently in no apparent distress. VITAL SIGNS: He is currently afebrile. Vital signs currently stable. ABDOMEN: Soft, nondistended, and nontender. There was a PEG tube in place. GENITOURINARY: Testes are difficult to discern. There is some edema of the foreskin. The patient has an uncircumcised male phallus with paraphimosis that is severe. There is also edema of the patient's foreskin as expected in paraphimosis. There is a traumatic hypospadias. The Church catheter in place, draining yellow urine out. For the remaining physical examination systems, please refer to the admission history and physical in the ERT sheet. PROCEDURE NOTE: With some degree of difficulty, I was able to reduce the patient's paraphimosis. This resulted in tearing of the paraphimotic band subsequent mild bleeding. I instructed the nurse to clean this with soap and water and placed Neosporin on it every shift and p.r.n. LABORATORY STUDIES: White blood cell count is 11,810, hemoglobin is low at 6.1, platelets are 304,000. The patient's creatinine is normal at 1.04. His potassium is low at 3. Urinalysis significant for 0-5 rbc's, 0-5 wbc's. COVID is negative. C. difficile toxin is positive. Urine culture was negative. Abdominal x-ray is nondiagnostic for the genitourinary system. ASSESSMENT: 1. Severe paraphimosis, reduced at the bedside. 2. Traumatic hypospadias. 3. Leukocytosis. 4. Anemia. 5. Thrombocytopenia. 6. Hypokalemia. 7. Edema of the inner foreskin as a result of the paraphimosis. 8. Church catheter in situ. 9. Neurogenic bladder. 10. Mixed-type urinary incontinence. PLAN: 1. The Church catheter in place at present time and change on monthly basis. 2. Instructed the nurse in the signs and symptoms of paraphimosis. Instructed her to always keep the foreskin covering the glans penis. Thank you much for involving us in care of your patient. We will be happy to follow him along with you as well as an outpatient. The patient may require circumcision and suprapubic tube needs to be a serious consideration due to the existing urethral erosion that ideally should be arrested. Jovi Chi MD OH/MODL /[id number]
[2020-05-22 04:56] LABS: BASOPHILS # (AUTO) 0.1 (0.0-0.1); BASOPHILS % 0.7 % (0.0-1.0); EOSINOPHILS # (AUTO) 0.2 (0.0-0.4); EOSINOPHILS % 1.4 % (0.0-6.0); HEMATOCRIT 25.6 % (38.2-49.6); HEMOGLOBIN 8.1 g/dL (14.0-18.0); LYMPHOCYTES # (AUTO) 1.9 (1.0-3.2); LYMPHOCYTES % 17.1 % (18.0-39.1); MEAN CORPUSCULAR HEMOGLOBIN 27.7 pg (28-32); MEAN CORPUSCULAR HGB CONC 31.6 g/dL (31-35); MEAN CORPUSCULAR VOLUME 87.7 fL (81-99); MONOCYTES # (AUTO) 0.8 (0.2-0.8); MONOCYTES % 6.8 % (4.4-11.3); NEUTROPHILS # (AUTO) 8.1 (2.1-6.9); NEUTROPHILS % 72.8 % (38.7-80.0); PLATELET COUNT 303 x10e3/uL (140-360); RED BLOOD COUNT 2.92 x10e6/uL (4.3-5.7); RED CELL DISTRIBUTION WIDTH 22.7 % (11.7-14.4)
[2020-05-22 05:20] LABS: ALANINE AMINOTRANSFERASE 6 IU/L (0-55); ALBUMIN/GLOBULIN RATIO 0.8 (0.8-2.0); ALKALINE PHOSPHATASE 56 IU/L (40-150); ANION GAP 13.1 mmol/L (8-16); BLOOD UREA NITROGEN 17 mg/dL (7-26); BUN/CREATININE RATIO 17 (6-25); CALCIUM 8.6 mg/dL (8.4-10.2); CARBON DIOXIDE 24 mmol/L (22-29); CHLORIDE 105 mmol/L (98-107); CREATININE, SERUM 1.03 mg/dL (0.72-1.25); EST GLOMERULAR FILTRATION RATE > 60 ML/MIN (60-); GLUCOSE 88 mg/dL (74-118); POTASSIUM 3.1 mmol/L (3.5-5.1); SODIUM 139 mmol/L (136-145)
[2020-05-22] MEDS: LEVOTHYROXINE SODIUM 100 MCG TAB PO SCH (06:09)
[2020-05-22] MEDS: METOCLOPRAMIDE HCL 10 MG/2ML VIAL IV SCH ×4 (06:09→23:14)
[2020-05-22] MEDS: MEROPENEM 1GM 100 ML IV SCH ×3 (06:09→22:55)
--- NOTE | 2020-05-22 07:06 | NUR ---
REPORT given to RN. JIANG
[2020-05-22] MEDS: FERROUS SULFATE 300 MG/5 ML LIQD PEG SCH (08:34)
[2020-05-22] MEDS: PRAMIPEXOLE DIHYDROCHLORIDE 0.25 MG TAB PO SCH ×2 (08:34→17:31)
[2020-05-22] MEDS: SODIUM HYPOCHLORITE 0.25% 480 ML SOLN IR SCH (08:34)
[2020-05-22] MEDS: DONEPEZIL HCL 5 MG TAB PO SCH (08:34)
[2020-05-22] MEDS: THIAMINE HCL INJ 100 MG/ML 2ML VIAL IV SCH (08:34)
[2020-05-22] MEDS: PANTOPRAZOLE SOD 40 MG TABEC PO SCH (08:34)
[2020-05-22] MEDS: AMIODARONE HCL 200 MG TAB PEG SCH (08:34)
[2020-05-22] MEDS: MIDODRINE HCL 5 MG TABLET PO SCH ×3 (08:34→17:31)
[2020-05-22] MEDS: LEVETIRACETAM ORAL SOLUTION 500 MG/5 ML SOLN PEG SCH ×2 (08:34→17:31)
[2020-05-22] MEDS: VASOPRESSIN 60 UNIT in DEXTROSE 5% 50ML 57 ML IV SCH (11:58)
--- NOTE | 2020-05-22 12:00 | NUR ---
INFECTIOUS DISEASE CONSULT NOTE DR. SUHAS WOODY CC: Bacteremia and PNA, CDIFF HPI: 54-year-old male, well known to me from previous admission and [facility]. The patient is in persistent vegetative state with chronic respiratory failure. He is vent-dependent, has multiple decubitus ulcer, anemia, has been at [facility] in the past and then remained in ICU. Currently, came in with worsening shortness of breath and the patient's chest x-ray is showing evidence of bilateral airspace opacities with pneumonia. The patient is tachypneic on mechanical ventilator. History obtained from the chart PMH: vegetative state, HTN, multiple infections ROS: unable to obtain due to vegetative state ALL 14 POINT ROS NEG UNLESS OTHERWISE NOTED LABS: reviewed RADIOLOGY: reviewed PHYSICAL EXAM GENERAL: vent dependent, critically ill HEENT: normocephalic, atraumatic CV: s1, s2, no s3, s4 CHEST: diminished, rhonchi ABD: PEG, soft, non-tender EXT: contractures, multiple wounds NEURO: unable to assess IMPRESSION: Bacteremia Chronic wounds Chronic hypoxic respiratory failure with vent dependence and trach HAP CDIFF Sepsis with septic shock present on admission PLAN: IV ABT as prescribed overall prognosis is very poor unrealistic expectations from the family repeat blood cultures negative Marianela Marin MSN, [employer]GER, AGANCP-BC Suhas Woody M.D.
--- NOTE | 2020-05-22 12:06 | Progress Note ---
DATE: I am covering Dr. Hsieh for this encounter. SUBJECTIVE: A 54-year-old gentleman with multiple medical conditions include multiple myeloma, worsening anemia, septic shock, hypercalcemia, currently appears lethargic. He has trach. Renal failure. He received blood transfusion yesterday, hemoglobin improved. OBJECTIVE: GENERAL: Lethargic. NECK: Supple. CHEST: Crackles. HEART: S1 and S2. ABDOMEN: Soft. LABORATORY DATA: Reviewed. ASSESSMENT AND PLAN: The patient with history of multiple myeloma, currently in sepsis and renal failure, and hypercalcemia. The patient had worsening anemia, followed and received GI workup. Current hemoglobin improved. Current hemoglobin is 8.1. At this point recommendation to continue current care, as the committee is involved. We will continue to provide complete supportive care. Not a candidate for any chemo treatment. We will follow up with primary oncologist. MD HORACE Gregory/ISABELLE /[id number]
[2020-05-22] MEDS ORDERED: SODIUM CHLORIDE 0.9% 500ML 500 ML IV ONE ×2 (12:30→13:30)
[2020-05-22] MEDS: POTASSIUM CHLORIDE 20 MEQ TAB CR PO PRN (16:08)
--- NOTE | 2020-05-22 18:00 | NUR ---
Dr sHieh called per Dr Austin's request. No extra unit of blood need at this time per Dr Hsieh. Dr Malik made aware, no new orders received at this time.
--- NOTE | 2020-05-22 18:13 | Progress Note ---
DATE: Internal Medicine Progress Note SUBJECTIVE: The patient is ventilator-dependent. He is right now with C. difficile colitis, multiple myeloma, which he is not a candidate for chemotherapy. Family . The patient is a full code. PHYSICAL EXAMINATION: VITAL SIGNS: The blood pressure is 109/80, temperature is 98 degrees, heart rate 69 per minute, respiratory rate 24 per minute, and oxygen saturation 100%. HEART: Showed regular rhythm. Normal S1 and S2 sound. LUNGS: Clear bilaterally. ABDOMEN: Soft. Got a PEG tube in place. EXTREMITIES: Show no edema. LABORATORY DATA: On the blood work, we have BMP; sodium 139, potassium 3.1, chloride 105, CO2 24, BUN 17, creatinine 1.03, and glucose 88. Total bilirubin 0.9, AST 17, ALT 6, and alkaline phosphatase 56. On the CBC; white blood count is elevated at 11.08, hemoglobin 8.1, hematocrit 25.6, and platelet count is . On microbiology, blood cultures are negative. Sputum culture shows Pseudomonas aeruginosa and Klebsiella pneumoniae. He has C. difficile in the stools. Chest x-ray was done. Also, it showed no significant changes. FINAL IMPRESSION: 1. Severe sepsis. 2. Aspiration pneumonia. 3. Multiple myeloma. 4. Vgvap-ll-ycderfh respiratory failure. 5. Clostridium difficile colitis. 6. Rudzq-os-infxjgf anemia. 7. Moderate protein-calorie malnutrition. 8. Hypokalemia. 9. Ventilator-dependency. PLAN OF TREATMENT: Continue ventilator support. Continue contact isolation for C. difficile. Continue fentanyl drip for sedation. Continue meropenem 1 g IV q.8 hours. Continue Levophed drip for hypotension. Continue vasopressin drip as needed for hypotension, Tylenol 650 mg q.4 hours as needed for fever, amiodarone 200 mg daily, Aricept 10 mg daily, ferrous sulfate 450 mg daily, furosemide as needed for volume overload, and Keppra 1500 mg twice a day. Continue levothyroxine 100 mcg daily. Continue lorazepam 0.5 mg 3 times a day as needed for anxiety. Continue midodrine 10 mg 3 times a day. Continue Protonix 40 mg daily, potassium 20 mEq as needed for hypokalemia, potassium 3.5, Mirapex 0.125 mg twice a day, Reglan 10 mg IV q.6 hours, and thiamine 100 mg IV daily. The patient had very poor prognosis. He is not a candidate for chemotherapy according to Hematology/robotics specialist. The patient is chronically connected to the ventilator. MD RUDY Rees/ISAEBLLE /[id number]
[2020-05-23] VITALS (24 sets, daily range): BP systolic 91–120; BP diastolic 52–81
[2020-05-23] MEDS: LEVOTHYROXINE SODIUM 100 MCG TAB PO SCH (05:15)
[2020-05-23] MEDS: METOCLOPRAMIDE HCL 10 MG/2ML VIAL IV SCH ×4 (05:15→23:42)
[2020-05-23] MEDS: MEROPENEM 1GM 100 ML IV SCH ×3 (05:15→22:34)
[2020-05-23 05:45] LABS: BASOPHILS # (AUTO) 0.1 (0.0-0.1); BASOPHILS % 0.6 % (0.0-1.0); EOSINOPHILS # (AUTO) 0.2 (0.0-0.4); EOSINOPHILS % 1.4 % (0.0-6.0); HEMATOCRIT 28.4 % (38.2-49.6); HEMOGLOBIN 8.8 g/dL (14.0-18.0); LYMPHOCYTES # (AUTO) 1.9 (1.0-3.2); LYMPHOCYTES % 14.9 % (18.0-39.1); MEAN CORPUSCULAR HEMOGLOBIN 27.2 pg (28-32); MEAN CORPUSCULAR VOLUME 87.7 fL (81-99); MONOCYTES # (AUTO) 0.7 (0.2-0.8); MONOCYTES % 5.4 % (4.4-11.3); NEUTROPHILS # (AUTO) 9.6 (2.1-6.9); NEUTROPHILS % 77.1 % (38.7-80.0); PLATELET COUNT 354 x10e3/uL (140-360); RED BLOOD COUNT 3.24 x10e6/uL (4.3-5.7); RED CELL DISTRIBUTION WIDTH 22.8 % (11.7-14.4)
[2020-05-23 06:08] LABS: ANION GAP 11.1 mmol/L (8-16); BLOOD UREA NITROGEN 17 mg/dL (7-26); BUN/CREATININE RATIO 20 (6-25); CALCIUM 7.9 mg/dL (8.4-10.2); CARBON DIOXIDE 24 mmol/L (22-29); CHLORIDE 106 mmol/L (98-107); CREATININE, SERUM 0.86 mg/dL (0.72-1.25); EST GLOMERULAR FILTRATION RATE > 60 ML/MIN (60-); GLUCOSE 79 mg/dL (74-118); POTASSIUM 3.1 mmol/L (3.5-5.1); SODIUM 138 mmol/L (136-145)
[2020-05-23] MEDS: POTASSIUM CHLORIDE 20 MEQ TAB CR PO PRN (06:36)
[2020-05-23] MEDS: MIDODRINE HCL 5 MG TABLET PO SCH ×3 (08:20→17:13)
[2020-05-23] MEDS: THIAMINE HCL INJ 100 MG/ML 2ML VIAL IV SCH (08:20)
[2020-05-23] MEDS: LEVETIRACETAM ORAL SOLUTION 500 MG/5 ML SOLN PEG SCH ×2 (08:20→17:13)
[2020-05-23] MEDS: PRAMIPEXOLE DIHYDROCHLORIDE 0.25 MG TAB PO SCH ×2 (08:20→17:13)
[2020-05-23] MEDS: AMIODARONE HCL 200 MG TAB PEG SCH (08:20)
[2020-05-23] MEDS: SODIUM HYPOCHLORITE 0.25% 480 ML SOLN IR SCH (08:20)
[2020-05-23] MEDS: PANTOPRAZOLE SOD 40 MG TABEC PO SCH (08:20)
[2020-05-23] MEDS: DONEPEZIL HCL 5 MG TAB PO SCH (08:20)
[2020-05-23] MEDS: FERROUS SULFATE 300 MG/5 ML LIQD PEG SCH (08:20)
[2020-05-23] MEDS: VASOPRESSIN 60 UNIT in DEXTROSE 5% 50ML 57 ML IV SCH (11:07)
--- NOTE | 2020-05-23 11:55 | Progress Note ---
DATE: 05/23/2020 SUBJECTIVE: Aramis Chavez is a 54-year-old black gentleman, referred to me for pancytopenia to begin with for detailed progress, please review all my dictations from before. Hematologically, he is very stable with hemoglobin of 8.8, hematocrit of 28.4, white count 12,480, and platelets opposed to less than 354,000. Chemistry, the patient is still hypokalemic with potassium of 3.1; however, the sodium has normalized to 138 and creatinine has normalized to 0.86. The patient is still hypocalcemic at 7.9, however, this is because of profound hypoalbuminemia which he has. Microbiology of blood cultures of 05/09 Klebsiella pneumoniae, later repeated reported negative; however, the sputum cultures have grown Pseudomonas and Klebsiella. The patient continues to be on antibiotics. Hematologically, the patient is stable enough for me not to intervene in any way. The chest x-ray of 05/21 has shown no changes. I will confine myself to Hematology-Oncology as dictated in the past. The patient also has IgA myeloma, which again is of academic interest in this person with multiple comorbidities. The patient has been referred to ethics committee for further care. Thank you for allowing me to participate in management of this patient. Snehal Hsieh MD MAQ/MODL /[id number] cc: Iván Sanches MD
[2020-05-23] MEDS ORDERED: KCL 20 MEQ PACKET/ ORAL SOLN PO ONE (13:30)
--- NOTE | 2020-05-23 14:17 | NUR ---
patient neurologically unchanged. minimally repsonsive state 98 82 102/74 The patient is in fact minimally conscious state vs comatose. He is not able to give a past medical, social or review of systems history given his clinical status. His exam shows a baseline dysconjugate gaze that can refocus with stimulation. Very diffusely, emaciated gentleman with low temporalis muscle wasted and clavicles prominent, thin ribs are evident on the exam. There is no nuchal rigidity. His trachea is midline. His pupils are reactive. He has very poor dentition and poor oral care. There is increased muscle tone in arms and legs with some spasticity left side appears more so than right side. Reflexes are brisk. Toes are upgoing bilaterally. Not following commands. a/p patient with minimally conscious state 2/2 recurrent neurological injury and respiratroy failure will attempt neurotropic trials, ambien, provigil, dopaminergics after baseline EEG is performed
--- NOTE | 2020-05-23 15:35 | Progress Note ---
DATE: Internal Medicine Progress Note SUBJECTIVE: The patient is still continued on ventilator, very poor prognosis. Family is avoiding to make him comfort care. Ethics committee is on the case. The patient has been on the ventilator for very, very long time. Quality of life is very poor. He has multiple myeloma. He is on the ventilator for a long time on top of not a candidate for any type of chemotherapy. PHYSICAL EXAMINATION: VITAL SIGNS: The blood pressure 120/81, temperature is 97.9, heart rate 82 per minute, respiratory rate 23 per minute, and oxygen saturation 96%. HEART: Regular rhythm. Normal S1, S2 sound. LUNGS: Clear bilaterally. ABDOMEN: Soft. He had a PEG tube in place. EXTREMITIES: 2+ bilateral pedal edema. LABORATORY DATA: On the CBC, white blood count 12.48, hemoglobin 8.8, hematocrit 28.4, and platelet count is 354,000. He has some teardrop cells, target cells, very rare schistocytes. Microcytosis also. On the chemistry we have the BMP; sodium 138, potassium 3.1, chloride 106, CO2 of 24, BUN 17, creatinine 0.6, glucose is 79, calcium 7.9, and magnesium 1.6. Toxicology; vancomycin trough is 13.9, which is within therapeutic range: COVID-19 is negative. C. difficile toxin is positive. The last chest x-ray showed no significant change. FINAL IMPRESSION: 1. Sepsis. 2. Aspiration pneumonia. 3. Multiple myeloma. 4. Chronic respiratory failure. 5. Clostridium difficile colitis. 6. Acute anemia. 7. [id number] protein-calorie malnutrition. PLAN OF TREATMENT: Continue ventilator support. Continue fentanyl drip as needed for sedation, meropenem 1 g IV q.8 hours, Levophed drip as needed for systolic blood pressure greater than 90. Continue with vasopressin for hypotension, Tylenol 650 mg q.4 hours as needed for fever, amiodarone 200 mg daily. Donepezil 10 mg daily, ferrous sulfate 450 mg daily. He is on furosemide 40 mg IV as needed for volume overload, Keppra 1500 mg twice a day, levothyroxine 100 mcg daily, Ativan 0.5 mg three times a day as needed for anxiety, midodrine 10 mg three times a day, and Protonix 40 mg daily. Potassium has been replaced due to the low potassium level on BMP. CBC is going to be on tomorrow, Mirapex 0.125 mg twice a day, Reglan 10 mg IV q.6 hours. Continue Dakin solution one application daily. Thiamine 100 mg IV daily. Prognosis is very poor due to the multiple comorbidities including multiple myeloma, chronic respiratory failure. Family is reluctant to put the patient on hospice. Prognosis is very poor. Quality of care is very poor also. Ethics committee is on the case. I discussed the case with the nurse at the bedside. Javascript Ui Developer reports have been reviewed also. Labs and x-rays have been reviewed. Plan of care has implemented. Time spent around 55 minutes. MD RUDY Rees/ISABELLE /[id number]
--- NOTE | 2020-05-23 20:56 | Progress Note ---
DATE: SUBJECTIVE: The patient is nonverbal, on mechanical ventilator, vent dependent, contracted. PHYSICAL EXAMINATION: VITAL SIGNS: Temperature 97.2, pulse of 80, blood pressure 103/62. Tracheostomy. CHEST: Clear. ABDOMEN: Soft, contracted. LABORATORY DATA: White count of 12,000, hemoglobin 8.8, platelets 354. Chemistry reviewed. Creatinine has improved. Vasopressor requirement has improved. The patient is just on vasopressin. ASSESSMENT/PLAN: Severe septic shock, Klebsiella pneumonia, extended-spectrum beta lactamase, vent dependent, bed-bound status, severe malnutrition, contractures of the body, gastrostomy tube, tracheostomy tube. PLAN: Continue antibiotic. Wean vasopressors as tolerated. The patient is vent dependent. Once off the vasopressors, possibly can go to long-term facilities for long-term antibiotic with a PICC line. Overall, prognosis is extremely poor. MD ELVER Charles/ISABELLE /[id number]
[2020-05-24] VITALS (25 sets, daily range): BP systolic 90–111; BP diastolic 52–81
[2020-05-24 05:36] LABS: BASOPHILS % 0.3 % (0.0-1.0); EOSINOPHILS # (AUTO) 0.3 (0.0-0.4); EOSINOPHILS % 2.2 % (0.0-6.0); HEMATOCRIT 29.8 % (38.2-49.6); HEMOGLOBIN 9.2 g/dL (14.0-18.0); LYMPHOCYTES # (AUTO) 2.1 (1.0-3.2); LYMPHOCYTES % 15.1 % (18.0-39.1); MEAN CORPUSCULAR HEMOGLOBIN 27.1 pg (28-32); MEAN CORPUSCULAR HGB CONC 30.9 g/dL (31-35); MEAN CORPUSCULAR VOLUME 87.6 fL (81-99); MONOCYTES # (AUTO) 0.7 (0.2-0.8); MONOCYTES % 5.1 % (4.4-11.3); NEUTROPHILS # (AUTO) 10.6 (2.1-6.9); NEUTROPHILS % 76.7 % (38.7-80.0); PLATELET COUNT 337 x10e3/uL (140-360); RED CELL DISTRIBUTION WIDTH 22.8 % (11.7-14.4)
[2020-05-24] MEDS: METOCLOPRAMIDE HCL 10 MG/2ML VIAL IV SCH ×3 (05:40→18:20)
[2020-05-24] MEDS: LEVOTHYROXINE SODIUM 100 MCG TAB PO SCH (05:40)
[2020-05-24] MEDS: MEROPENEM 1GM 100 ML IV SCH ×3 (05:40→21:17)
[2020-05-24 05:50] LABS: ANION GAP 10.5 mmol/L (8-16); BLOOD UREA NITROGEN 19 mg/dL (7-26); BUN/CREATININE RATIO 22 (6-25); CALCIUM 7.4 mg/dL (8.4-10.2); CARBON DIOXIDE 24 mmol/L (22-29); CHLORIDE 109 mmol/L (98-107); CREATININE, SERUM 0.88 mg/dL (0.72-1.25); EST GLOMERULAR FILTRATION RATE > 60 ML/MIN (60-); GLUCOSE 78 mg/dL (74-118); POTASSIUM 3.5 mmol/L (3.5-5.1); SODIUM 140 mmol/L (136-145)
[2020-05-24] MEDS: PANTOPRAZOLE SOD 40 MG TABEC PO SCH (07:44)
[2020-05-24] MEDS: MIDODRINE HCL 5 MG TABLET PO SCH ×3 (07:44→16:08)
[2020-05-24] MEDS: LEVETIRACETAM ORAL SOLUTION 500 MG/5 ML SOLN PEG SCH ×2 (09:06→17:00)
[2020-05-24] MEDS: PRAMIPEXOLE DIHYDROCHLORIDE 0.25 MG TAB PO SCH ×3 (09:06→21:17)
[2020-05-24] MEDS: THIAMINE HCL INJ 100 MG/ML 2ML VIAL IV SCH (09:06)
[2020-05-24] MEDS: AMIODARONE HCL 200 MG TAB PEG SCH (09:06)
[2020-05-24] MEDS: SODIUM HYPOCHLORITE 0.25% 480 ML SOLN IR SCH (09:06)
[2020-05-24] MEDS: FERROUS SULFATE 300 MG/5 ML LIQD PEG SCH (09:06)
[2020-05-24] MEDS: DONEPEZIL HCL 5 MG TAB PO SCH (09:06)
--- NOTE | 2020-05-24 11:19 | Progress Note ---
DATE: 05/24/2020 SUBJECTIVE: Aramis Chavez is a 54-year-old black gentleman, referred to me for evaluation of anemia and thrombocytopenia. The patient's hemoglobin today is 9.2, still slightly high. White count of 13,850. Platelets, however, have become absolutely normal at 337,000. Microbiology results remain about the same. Imaging the last done on 05/21 did not show any change. There were bilateral air space opacities. The patient had grown Pseudomonas. As I have dictated multiple times, the supportive care should be given to this patient with multiple comorbidities who is oxygen-dependent. MD BOB Harkins/ISABELLE /[id number]
[2020-05-24] MEDS: VASOPRESSIN 60 UNIT in DEXTROSE 5% 50ML 57 ML IV SCH (11:30)
--- NOTE | 2020-05-24 12:19 | NUR ---
Nutrition Intervention Note RD Recommendation(s) for Physician: - Continue Vital AF 1.2 and advance as tolerated to goal rate of 70 ml/hr (to provide 2016 kcal and 126 gm protein) to better meet needs. - If unable to advance TF to goal rate soon, consider TPN to meet needs- consult Nutrition for recommendations. - Water flushes and fluid management per MD. - Please give Ismael 1 packet BID per PEG to promote wound healing. - Recommend Vitamin C 500 mg BID and Zinc Sulfate 220 mg/day to promote wound healing. Pt meets criteria for moderate protein calorie malnutrition Plan of Care: RD following, monitoring for tolerance and adequacy. TF, MVI, and supplement rec's. Nutrition reason for involvement: follow up RD Assessment 05/24: Follow up. Pt remains on vent via trach. TF infusing at 40 ml/hr. Pressor support weaned, currently on Vasopressin at 0.1 unit/hr. Pt tolerating TF per RN. Discussed advancing TF to goal rate of 70 ml/hr with RN on unit. Chart reviewed. 05/20: Follow up. Pt remains on the ventilator. Nursing note indicates pt is on 3 mcg/min of levophed and 0.05 units/min of vasopressin. RN stated pt is tolerating TF of Vital 1.2 @ 20 mL/hr and no recent high residuals. Pt is also on Reglan. Recommend advancing towards recommended goal rate as appropriate and discussed pt with RN. Current recommendations remain appropriate. Will continue to monitor. 05/18: Follow up. Pt remains on vent via trach. Pt discussed during MDR. Pt now tolerating TF at 30 ml/hr, RD rec's discussed with RN on unit. No recent high residuals. Pt currently on high dose Levophed. Per chart pt with septic shock and C. diff. Chart reviewed. Current rec's remain appropriate. 05/15: Follow up. Chart reviewed. RN stated pt TF is currently on hold since pt had vomited last night and had a residual of 900 mL this morning. Pt was previously receiving TF @ 40 mL/her per documentation. Recommend resuming TF when appropriate. Tube feed formula change recommendation was provided to RN. Will continue to monitor. 05/12: 54 YOM admitted for aspiration pneumonia, seen today per TF on admit. Pt transferred from ER to ICU now. Pt chronic trach and PEG, currently on vent and receiving TF at 40 ml/hr. Pt on high Levophed currently. No prior admits per chart, unable to obtain wt or TF hx currently. Pt with multiple wounds on admit per MD notes. Awaiting wound care consult. TF and supplement rec's provided and placed in chart. Chart reviewed. Will continue to monitor. Principal Problems/Diagnoses: aspiration pneumonia, hypoglycemia PMH: organic brain syndrome, CVA, persistent vegetative state, bipolar, HTN, multiple wounds, contractures GI: last BM 05/24- mucoid, +PEG Skin: Per MD note- L ankle stage IV, R foot necrotic, unstagable, L groin stage IV, R inner thigh stage III, PEG site loose + drainage, sacral area stage IV, L hip stage IV, wounds to upper back +2 edema Labs: 05/24: Na 140, K 3.5, BUN 19, Cr 0.88, Gluc 78, POC Gluc 91-101 05/19: Na 138, K 3.6, BUN 17, Cr 1.06, Glu 90, Ca 10.4 05/17: Na 138, K 3.1, BUN 18, Cr 1.1, Gluc 77, POC Gluc 80-91, Ca 12.6 05/15: Na 135, K 3.9, BUN 22, Cr 1.04, Glu 153, Ca 10.8 05/12: Na 142, K 4.2, BUN 26, Cr 1.12, Gluc 61 Meds: keppra, feosol, thiamine, protonix, abx, reglan, synthroid, kdur, lasix IVF/Drips: Vasopressin at 0.1 unit/hr Ht: 70 in Wt: 156 lbs (05/19) 144.06 (05/18) 144 lbs (05/15) 153.19 lb (05/12) Suspect possible weight error BMI: 22 kg/m2 (using wt of 153.19 lbs) IBW: 166 lb Malnutrition Evaluation (05/24/20) The patient meets criteria for MODERATE protein-calorie malnutrition. Energy intake: Moderate, TF not meeting needs >7 days Weight loss: CHRISTIANNE, no prior admit wt available Fat loss: moderate, very little skinfold thickness Muscle loss: moderate, temporal wasting, clavicle some protrusion Supporting Evidence: Fluid accumulation: +2 edema Functional Status: poor functional status at baseline Nutrition Prescription (Diet Order): Vital AF 1.2 @ 20 mL/hr, infusing at 40 ml/hr (1152 kcal and 72 gm protein) Estimated Nutritional Needs: 7337-9031 calories/day (28-32 kcal/kg CBW) Weight: 153.19 lbs 84-139 g protein/day (1.2-2 g pro/kg CBW) Weight: 153.19 lbs Diet Adequacy: Not meeting calorie needs, Not meeting protein needs Diet Tolerance: tolerating TF Diet Education Needs Assessment: Diet education not indicated, patient TF dependent. Nutrition Care Level: high- multiple wounds, TF not meeting needs Nutrition Diagnosis: Increased energy and protein needs related to skin integrity as evidenced by multiple wounds present on admit. Goal: Patient will meet 75-100% of estimated needs by follow up Progress: goal not met Interventions: - Composition, Rate, Route, Recommended Modifications, Multivitamin/mineral supplement therapy, Collaboration with other providers, Ismael Monitoring/Evaluation: - Total energy intake, Total protein intake, Formula/Solution, Prescription medication Signed: Kate Diez RD, LD, CNSC
--- NOTE | 2020-05-24 13:00 | Progress Note ---
DATE: SUBJECTIVE: Mr. Chavez is remained on ventilator. The patient is noncommunicative. PHYSICAL EXAMINATION: Unchanged since admission. VITAL SIGNS: Stable. Heart rate 80, respiration 26, and blood pressure 105/73. HEENT: He is not icteric. NECK: Supple. CHEST: Crackles. HEART: S1, S2. ABDOMEN: Soft, contracted. LABORATORY DATA: His white count 13.85, hemoglobin 9.2. Sodium 140, potassium 3.5, with a creatinine of 0.88. IMPRESSION: 1. Sepsis on admission. 2. Respiratory failure. 3. Recurrent aspiration. 4. Congestive heart failure. The patient was currently on meropenem since 05/21. His prognosis is extremely poor . Family with unrealistic expectation. Mild nutrition, bedbound, tracheostomy, status post gastrostomy tube. Extended spectrum beta-lactamase bacteremia on May 09. Klebsiella, to finish 14 days of meropenem. We discussed with the patient's family about hospice and comfort care, they have not made a decision yet. MD RACHEL Naik/ISABELLE /[id number]
--- NOTE | 2020-05-24 13:33 | NUR ---
The Ethics Consult Service was consulted concerning this case regarding the appropriateness regarding the resuscitation status for this patient who lacks decision making capacity and has a very poor prognosis. Initial Assessment: This patients cousin, Jaimie Nam, serves as his surrogate decision maker since he became incapacitated early this year following "a heart attack." The patient's cousin lives in the [facility]. There is no known Advance Directive or Living Will in place. Several physicians have noted that the family is reluctant to agree to hospice/comfort care measures. I spoke to the patients cousin on this date and she states that, I never had that conversation (end of life decisions) with him and dont want to make that decision for him. The patients cousin states that he has two biological sons (one minor and one adult) and other distant relatives who concur with her. She also states that the adult son is not involved with the patient's life. The patients cousin expressed her belief in miraculous recoveries. Recommendations 1. Given that the patient's surrogate decision maker hasn't seen the patient in person "in several months" it would be helpful to arrange a bedside visit. It would be more beneficial to conduct the visit in person rather than virtually. 2. It may be beneficial to conduct a family meeting as soon as practicable after the bedside visit. The Ethics Consult Service will continue to gather clinical information and communicate with the surrogate decision maker with the goal reaching a consensus. Thank you for this consult. ANAT Crowell Ethics Consult Service O: [phone]
--- NOTE | 2020-05-24 20:57 | NUR ---
patient neurologically unchanged. minimally repsonsive state 98 82 102/74 The patient is in fact minimally conscious state vs comatose. He is not able to give a past medical, social or review of systems history given his clinical status. His exam shows a baseline dysconjugate gaze that can refocus with stimulation. Very diffusely, emaciated gentleman with low temporalis muscle wasted and clavicles prominent, thin ribs are evident on the exam. There is no nuchal rigidity. His trachea is midline. His pupils are reactive. He has very poor dentition and poor oral care. There is increased muscle tone in arms and legs with some spasticity left side appears more so than right side. Reflexes are brisk. Toes are upgoing bilaterally. Not following commands. a/p patient with minimally conscious state 2/2 recurrent neurological injury and respiratroy failure will attempt neurotropic trials, ambien, provigil, dopaminergics eeg showed severe diffuse enecphloapthy without seizure
--- NOTE | 2020-05-24 20:59 | NUR ---
eeg 30 min study EEG being performed to evaluate nuerophyisological dysfunction and comatose state performed using a 10/20 international electrode placement system and read in bipolar montage w video EEG data: intemrittent slow delta theta waves - 3-7 hz 10-40mV intemrittent higher amplitude delta waves 2-4hz poorly organized posterior dominant rythm EEG interpretation abnormal III severe diffuse encphalopathy without evidence of epileptoginicy. poor reactivity throughout
[2020-05-24] MEDS: LORAZEPAM 0.5 MG TAB PO PRN (22:22)
[2020-05-25] VITALS (17 sets, daily range): BP systolic 101–120; BP diastolic 58–76
[2020-05-25] MEDS: METOCLOPRAMIDE HCL 10 MG/2ML VIAL IV SCH ×3 (00:25→11:12)
[2020-05-25] MEDS ORDERED: ACETAMINOPHEN 325 MG TAB ONE (02:25)
[2020-05-25] MEDS: LEVOTHYROXINE SODIUM 100 MCG TAB PO SCH (06:33)
[2020-05-25] MEDS: MEROPENEM 1GM 100 ML IV SCH (06:33)
--- NOTE | 2020-05-25 08:33 | NUR ---
patient neurologically unchanged. minimally repsonsive state 99 .0 88 102/59 The patient is in fact minimally conscious state vs comatose. He is not able to give a past medical, social or review of systems history given his clinical status. His exam shows a baseline dysconjugate gaze that can refocus with stimulation. Very diffusely, emaciated gentleman with low temporalis muscle wasted and clavicles prominent, thin ribs are evident on the exam. There is no nuchal rigidity. His trachea is midline. His pupils are reactive. He has very poor dentition and poor oral care. There is increased muscle tone in arms and legs with some spasticity left side appears more so than right side. Reflexes are brisk. Toes are upgoing bilaterally. Not following commands. a/p patient with minimally conscious state 2/2 recurrent neurological injury and respiratroy failure will attempt neurotropic trials, ambien, provigil, dopaminergics eeg showed severe diffuse enecphloapthy without seizure initiated dopaminergic trail 05/23/20 will monitor
[2020-05-25] MEDS: MIDODRINE HCL 5 MG TABLET PO SCH ×2 (08:37→11:12)
[2020-05-25] MEDS: PANTOPRAZOLE SOD 40 MG TABEC PO SCH (08:37)
[2020-05-25] MEDS: SODIUM HYPOCHLORITE 0.25% 480 ML SOLN IR SCH (08:37)
[2020-05-25] MEDS: AMIODARONE HCL 200 MG TAB PEG SCH (08:38)
[2020-05-25] MEDS: DONEPEZIL HCL 5 MG TAB PO SCH (08:38)
[2020-05-25] MEDS: THIAMINE HCL INJ 100 MG/ML 2ML VIAL IV SCH (08:38)
[2020-05-25] MEDS: LEVETIRACETAM ORAL SOLUTION 500 MG/5 ML SOLN PEG SCH (08:38)
[2020-05-25] MEDS: FERROUS SULFATE 300 MG/5 ML LIQD PEG SCH (08:38)
[2020-05-25] MEDS: PRAMIPEXOLE DIHYDROCHLORIDE 0.25 MG TAB PO SCH ×2 (09:00→09:36)
[2020-05-25 09:35] LABS: ABG HCO3 26 mmol/L (22-26); ABG PCO2 58 mmHg (35-45); ABG PH 7.26 (7.35-7.45); ABG PO2 95 mmHg (80-105); ABG TCO2 28
--- NOTE | 2020-05-25 10:50 | NUR ---
CALLED FAMILY MAGALY JACK [phone] GAVE PERMISSION TO RETURN TO [facility] [place], [facility] DOES NOT CARE ABOUT AMBULANCE. LET NURSE KNOW AND FAXED CLINICALS TO FACILITY
--- NOTE | 2020-05-25 13:10 | NUR ---
ASSISTED FACILITY DISCHARGE INFORMATION PATIENT HAS BEEN ACCEPTED TO: NAME:[facility] ADDRESS:[id number] [facility] [place] [facility] TECHNICIAN:MANI ARVIZU MD:GEORGIANA ROOM:[id number] NURSE CALL REPORT TO: [phone] IMM SIGNED AND OBTAINED (if applicable): NA THE FOLLOWING DOCUMENTS MUST ACCOMPANY PATIENT FOR TRANSFER: COPIED CHART:PACKET
[2020-05-25] MEDS: LORAZEPAM 0.5 MG TAB PO PRN (14:37)
--- NOTE | 2020-05-25 15:31 | NUR ---
Dr. Francisco Sanches gave orders to transfer patient back to [facility] facility. Case management aware. Per Dr. Glibert d/c IV abx, PICC line removed. Orders for mirpex clarified with Dr. Matthews. EMS picked up patient at 1530, pt does not appear to be in any s/s of distress at this time.
[2020-05-26] MEDS ORDERED: AMIODARONE HCL 200 MG TAB PEG SCH (09:00)
== END 2020-05-25 15:34 | DRG 870 ==
LOC: ER 20:15 → ERHOLD 23:38 → ICU 05-10 00:27
PROC: 5A1955Z Respiratory Ventilation, Greater than 96 Consecutive Hours (ICD-10-PCS; principal; 2020-05-09)
PROC: 3E043XZ Introduction of Vasopressor into Central Vein, Percutaneous Approach (ICD-10-PCS; 2020-05-10)
PROC: 02HV33Z Insertion of Infusion Device into Superior Vena Cava, Percutaneous Approach (ICD-10-PCS; 2020-05-10)
PROC: 30233N1 Transfusion of Nonautologous Red Blood Cells into Peripheral Vein, Percutaneous Approach (ICD-10-PCS; 2020-05-10)
PROC: B548ZZA Ultrasonography of Superior Vena Cava, Guidance (ICD-10-PCS; 2020-05-10)
PROC: 30233R1 Transfusion of Nonautologous Platelets into Peripheral Vein, Percutaneous Approach (ICD-10-PCS; 2020-05-12)
DX: A41.89 Other specified sepsis (principal); L89.894 Pressure ulcer of other site, stage 4; L89.154 Pressure ulcer of sacral region, stage 4; L89.114 Pressure ulcer of right upper back, stage 4; L89.224 Pressure ulcer of left hip, stage 4; J69.0 Pneumonitis due to inhalation of food and vomit; R65.21 Severe sepsis with septic shock; J96.21 Acute and chronic respiratory failure with hypoxia; J15.0 Pneumonia due to Klebsiella pneumoniae; J15.1 Pneumonia due to Pseudomonas; E43 Unspecified severe protein-calorie malnutrition; I50.33 Acute on chronic diastolic (congestive) heart failure; G93.41 Metabolic encephalopathy; Z99.11 Dependence on respirator [ventilator] status; R40.3 Persistent vegetative state; A04.72 Enterocolitis due to Clostridium difficile, not specified as recurrent; Z16.12 Extended spectrum beta lactamase (ESBL) resistance; C90.00 Multiple myeloma not having achieved remission; Z09 Encounter for follow-up examination after completed treatment for conditions other than malignant neoplasm; Z99.81 Dependence on supplemental oxygen; L89.150 Pressure ulcer of sacral region, unstageable; I10 Essential (primary) hypertension; I69.398 Other sequelae of cerebral infarction; K21.9 Gastro-esophageal reflux disease without esophagitis; G40.909 Epilepsy, unspecified, not intractable, without status epilepticus; Z93.0 Tracheostomy status; Z93.1 Gastrostomy status; E16.2 Hypoglycemia, unspecified; Z74.01 Bed confinement status; L89.890 Pressure ulcer of other site, unstageable; L89.896 Pressure-induced deep tissue damage of other site; I48.0 Paroxysmal atrial fibrillation; D64.9 Anemia, unspecified; D69.6 Thrombocytopenia, unspecified; B96.5 Pseudomonas (aeruginosa) (mallei) (pseudomallei) as the cause of diseases classified elsewhere; E03.9 Hypothyroidism, unspecified; B96.1 Klebsiella pneumoniae [K. pneumoniae] as the cause of diseases classified elsewhere; E83.52 Hypercalcemia; N47.2 Paraphimosis; Q54.8 Other hypospadias; N31.9 Neuromuscular dysfunction of bladder, unspecified; N39.46 Mixed incontinence; E87.6 Hypokalemia; Z11.59 Encounter for screening for other viral diseases
CPT/HCPCS: 36415; 36569; 36600; 71045; 74018; 80048; 80053; 80202; 81001; 82550; 82553; 82607; 82728; 82746; 82784; 82805; 82948; 83540; 83605; 83735; 84132; 84443; 84466; 84484; 85025; 85045; 85610; 86850; 86900; 86920; 87040; 87070; 87071; 87086; 87186; 87205; 87493; 93005; 93306; 94002; 94003; 95812; 99251; 99285; J0456; J0692; J0696; J1160; J1940; J2430; J2543; J2765; J3370; J3411; J7030; J7040; J7050; J7799; P9016; P9034; P9047